=== PATIENT | male | born 1935 | race Caucasian/White ===

== ENCOUNTER → 2018-06-29 | Outpatient (CLI) | payer MEDICARE, BC ==
[2018-05-31 17:23] VITALS: BP 102/78
[~2018-06-29] MED LIST: FURO-68 PO; INDO50CA5 PO; LEVO25TA55 PO; MENT71OI TP
--- NOTE | 2018-06-29 11:34 | RAD ---
Chest, 2 views, 06/29/2018: HISTORY: Shortness of breath and chest pain Comparison is made to a study from 05/28/2018. The heart size is normal. There is mild tortuosity of the thoracic aorta. The trachea is deviated to the right of midline at the thoracic inlet due to the patient's known left thyroid mass. The pulmonary vascularity is normal. There is minimal left basilar scarring. No acute infiltrate is seen. There is no evidence of pleural fluid. Mild spurring is present in the spine. IMPRESSION: 1. Chronic findings as described above. 2. No acute cardiopulmonary abnormality is detected. Electronically signed by: Avni Guy MD (06/29/2018 11:31 AM) [facility]
--- NOTE | 2018-06-29 11:37 | RAD ---
Ventilation/perfusion lung scan, 06/29/2018: HISTORY: Dyspnea, chest pain The ventilation study was performed utilizing 12 mCi of xenon-133. Activity in the lungs is symmetric. There is good washout of activity from both lungs. Perfusion imaging was performed following IV injection of 5.5 mCi of technetium 99m MAA. A similar pattern of activity is present in the lungs. Previously seen bilateral pulmonary perfusion defects from the 05/28/2018 exam have resolved. No segmental or significant unmatched perfusion defect is currently seen. IMPRESSION: There are no VQ findings to suggest pulmonary emboli. Electronically signed by: Avni Guy MD (06/29/2018 11:34 AM) [facility]
== END | disposition home or self-care (01) ==
LOC: NM 08:47
PROVIDERS: ATTEND Internal Medicine Critical Care Medicine
DX: M46.04 Spinal enthesopathy, thoracic region (principal); J39.8 Other specified diseases of upper respiratory tract; I11.0 Hypertensive heart disease with heart failure; I50.33 Acute on chronic diastolic (congestive) heart failure; I25.10 Atherosclerotic heart disease of native coronary artery without angina pectoris; I48.91 Unspecified atrial fibrillation; E03.9 Hypothyroidism, unspecified; Z82.0 Family history of epilepsy and other diseases of the nervous system
CPT/HCPCS: 71046; 78582; 96374; A9540; A9558

== ENCOUNTER 2020-06-29 11:09 | Inpatient (IN) | payer BC, MEDICARE ==
[~2020-06-29] VITALS: Ht 182.9 cm; Wt 90.0 kg
[~2020-06-29 11:09] MED LIST changes: +INDO50CA15 PO; -INDO50CA5 PO
--- NOTE | 2020-06-29 11:23 | RAD ---
EXAM: CT Head without IV contrast INDICATION: Reason: LEFT SIDED WEAKNESS / Spl. Instructions: / History: TECHNIQUE: Multi-detector row CT images were obtained of the head without the use of IV contrast. All CT scans performed at this facility utilize dose optimization techniques as appropriate to the exam, including the following: Automated exposure control and adjustment of the mA and/or KV according to patient size (this includes techniques or standardized protocols for targeted exams where dose is indication/reason for exam). COMPARISON: None FINDINGS: BRAIN PARENCHYMA: No evidence of acute intraparenchymal hemorrhage or infarct. Mild generalized parenchymal volume loss is present. VENTRICLES & EXTRA-AXIAL SPACES: Ventricles are within normal limits. Basilar cisterns are patent. No pathologic extra-axial fluid collection or mass. ORBITS: Orbital contents are unremarkable. SINUSES: Visualized paranasal sinuses and mastoid air cells are clear. OSSEOUS & SOFT TISSUES: Calvarium and skull base are intact. IMPRESSION: No acute intracranial pathology. FOR INTERNAL CODING PURPOSES Critical result: Findings discussed with LÁZARO ALBERT at 06/29/2020 11:19 AM. RESULT CODE: (C) Electronically signed by: Jimbo Hunter MD (06/29/2020 11:19 AM) [id number]
--- NOTE | 2020-06-29 11:27 | PHYS DOC ---
Past Medical History Past Medical History: Anxiety, Dementia, Hypertension, Hypothyroid, Other Additional Past Medical Histor: ALZHEIMER'S, GEN. EDEMA, MDD Past Surgical History: Other Additional Past Surgical Histo: UNKNOWN - POOR HISTORIAN Smoking Status: Former Smoker Alcohol Use: Occasionally Drug Use: None General Adult EDM: Chief Complaint: LEFT SIDED WEAKNESS HPI: HPI: Patient is a 85 year old male who presents with left-sided weakness and altered mental status with last known normal at 10:30 AM. History and physical review of systems limited due to altered mental status. Review of Systems: Review of Systems: Constitutional: Denies fever or chills. [] Eyes: Denies change in visual acuity. [] HENT: Denies nasal congestion or sore throat. [] Respiratory: Denies cough or shortness of breath. [] Cardiovascular: Denies chest pain or edema. [] GI: Denies abdominal pain, nausea, vomiting, bloody stools or diarrhea. [] : Denies dysuria. [] Musculoskeletal: Denies back pain or joint pain. [] Integument: Denies rash. [] Neurologic: Denies headache, focal weakness or sensory changes. [] Endocrine: Denies polyuria or polydipsia. [] Lymphatic: Denies swollen glands. [] Psychiatric: Denies depression or anxiety. [] Heart Score: Risk Factors: Risk Factors: DM, Current or recent (<one month) smoker, HTN, HLP, family history of CAD, obesity. Risk Scores: Score 0 - 3: 2.5% MACE over next 6 weeks - Discharge Home Score 4 - 6: 20.3% MACE over next 6 weeks - Admit for Clinical Observation Score 7 - 10: 72.7% MACE over next 6 weeks - Early Invasive Strategies Allergies: Allergies: Allergies Coded Allergies Type Severity Reaction Last Updated Verified Penicillins Allergy Unknown 05/28/18 Yes Physical Exam: PE: Constitutional: Frail, mildly cachectic HENT: Normocephalic, no trismus no oral exudates, nose normal. [] Eyes: PERRLA, EOMI, conjunctiva normal, no discharge. [] Neck: Normal range of motion, no tenderness, supple, no stridor. [] Cardiovascular: Irregular, peripheral pulses intact Lungs & Thorax: Diminished breath sounds bilaterally, bruising to the left superior chest Abdomen: Soft nontender nondistended Skin: Bruising to the left chest and mild erythema to left middle finger Back: Full range of motion Extremities: Bruising to the left upper arm and old laceration to the middle phalanx of the middle finger on the dorsal side of the left hand with mild surrounding erythema. Neurologic: Alert and oriented X 1, moves all extremities, mild expressive aphasia Psychologic: Difficult to assess due to altered mental status EKG: EKG: [] EKG interpreted by me atrial flutter with a rate of 76 left axis deviation left anterior hemiblock nonspecific ST changes, nonspecific idioventricular block Radiology/Procedures: Radiology/Procedures: [][facility] [address] [place] [address] IMAGING REPORT Signed PATIENT: SARAH DE LA CRUZ ACCOUNT: [id number] : 1935 LOCATION: ER AGE: 85 SEX: M EXAM STATUS: PRE ER ORD. PHYSICIAN: LÁZARO ALBERT MD REASON: LEFT SIDED WEAKNESS PROCEDURE: CT CODE STROKE HEAD WO EXAM: CT Head without IV contrast INDICATION: Reason: LEFT SIDED WEAKNESS / Spl. Instructions: / History: TECHNIQUE: Multi-detector row CT images were obtained of the head without the use of IV contrast. All CT scans performed at this facility utilize dose optimization techniques as appropriate to the exam, including the following: Automated exposure control and adjustment of the mA and/or KV according to patient size (this includes techniques or standardized protocols for targeted exams where dose is indication/reason for exam). COMPARISON: None FINDINGS: BRAIN PARENCHYMA: No evidence of acute intraparenchymal hemorrhage or infarct. Mild generalized parenchymal volume loss is present. VENTRICLES & EXTRA-AXIAL SPACES: Ventricles are within normal limits. Basilar cisterns are patent. No pathologic extra-axial fluid collection or mass. ORBITS: Orbital contents are unremarkable. SINUSES: Visualized paranasal sinuses and mastoid air cells are clear. OSSEOUS & SOFT TISSUES: Calvarium and skull base are intact. IMPRESSION: No acute intracranial pathology. FOR INTERNAL CODING PURPOSES Critical result: Findings discussed with LÁZARO ALBERT at 06/29/2020 11:19 AM. RESULT CODE: (C) Electronically signed by: Katie Hunter MD (06/29/2020 11:19 AM) [id number] DICTATED and SIGNED BY: KATIE HUNTER MD DATE: 06/29/20 1119 [facility] [address] [place] [address] IMAGING REPORT Signed PATIENT: SARAH DE LA CRUZ ACCOUNT: [id number] : 1935 LOCATION: ER AGE: 85 SEX: M EXAM STATUS: REG ER ORD. PHYSICIAN: LÁZARO ALBERT MD REASON: CVA PROCEDURE: PORTABLE CHEST 1V PORTABLE CHEST 1V 06/29/2020 11:10 AM INDICATION: CVA COMPARISON: 06/29/2018 TECHNIQUE: Portable frontal view of the chest is provided. FINDINGS: The cardiomediastinal silhouette is within normal limits. Lungs are clear. There are no significant pleural effusions. There is no pulmonary vascular congestion. No pneumothorax. No suspicious osseous abnormality. IMPRESSION: There is no acute cardiopulmonary process. Electronically signed by: Chris Arita MD (06/29/2020 12:11 PM) [id number] DICTATED and SIGNED BY: CHRIS ARITA MD DATE: 06/29/20 1211 [facility] [address] [place] [address] IMAGING REPORT Signed PATIENT: SARAH DE LA CRUZ ACCOUNT: [id number] : 1935 LOCATION: ER AGE: 85 SEX: M EXAM STATUS: REG ER ORD. PHYSICIAN: LÁZARO ALBERT MD REASON: LEFT SIDED WEAKNESS PROCEDURE: CT ANGIOGRAPHY HEAD AND NECK Examination: CT angiography head and neck with IV contrast COMPARISON:CT head same day exam History: Left-sided weakness TECHNIQUE: Axial CT angiographic images of the head and neck were performed with IV contrast. Coronal and sagittal 3-D MIP reformats are performed. 3-D Volumetric reformats of the carotids and [place] of [place] were performed. Exposure: One or more of the following individualized dose reduction techniques were utilized for this examination: 1. Automated exposure control 2. Adjustment of the mA and/or kV according to patient size 3. Use of iterative reconstruction technique Stenosis calculations for CT, MR, and conventional angiography are based upon measurements of the distal ICA diameter in accordance with the NASCET methodology. Stenosis calculations for carotid ultrasound studies are derived from validated velocity criteria which are known to correlate with the NASCET methodology. FINDINGS: There is a 4 cm hypodense nodule identified in the left lobe of the thyroid gland. The origin of the great vessels from the arch of the aorta appears patent. The visualized common carotid arteries appear patent. Moderate atherosclerotic calcifications identified in the proximal left proximal internal carotid artery. There is mild to moderate atherosclerotic calcification identified in the right proximal internal carotid artery. Moderate metastatic calcifications identified in the bilateral internal carotid arteries in the cavernous portions. The bilateral middle cerebral arteries, anterior cerebral arteries are patent The bilateral vertebral arteries, basilar artery is patent. The bilateral posterior cerebral arteries are patent. Mild emphysematous changes apical lungs. IMPRESSION: 1. No evidence of occlusive thrombus. 2. Moderate atherosclerotic calcifications identified in the left proximal internal carotid artery and mild to moderate atherosclerotic calcification identified in the right proximal internal carotid artery of the neck. Electronically signed by: Regino Self MD (06/29/2020 12:17 PM) [id number] DICTATED and SIGNED BY: REGINO SELF MD DATE: 06/29/201216 Impression: 1a Level of Consciousness: 0 = Alert; keenly responsive. 1b LOC Questions: 2 = Answers neither question correctly. 2 Best Gaze: 0 = Normal. 3. Visual: 0 = No visual loss. 4. Facial Palsy: 0 = Normal symmetrical movements. 5. Motor Arm: Left 0 = No drift; limb holds 90 (or 45) degrees for full 10 seconds. Right 0 = No drift; limb holds 90 (or 45) degrees for full 10 seconds. 6. Motor Leg: Left 0 = No drift; leg holds 30-degree position for full 5 seconds. Right 0 = No drift; leg holds 30-degree position for full 5 seconds. 7. Limb Ataxia: 0 8. Sensory: 1 = Uycv-wz-[id number] sensory loss; patient feels pinprick is less sharp or is dull on the affected side; or there is a loss of superficial pain with pinprick, but patient is aware of being touched. 9. Best Langauge: 2 = Severe aphasia; all communication is through fragmentary expression; great need for inference, questioning, and guessing by the listener. Range of information that can be exchanged is limited; listener carries burden of communication. Examiner cannot identify materials provided from patient response . 10 Dysarthria: 0 = Normal. 1 = Ukvu-gy-[id number] dysarthria; patient slurs at least some words and, at worst, can be understood with some difficulty. 11. Extinction and Inattention (formerly Neglect): 0 = No abnormality. Course & Med Decision Making: Course & Med Decision Making Pertinent Labs and Imaging studies reviewed. (See chart for details) [] 85-year-old male comes in as a code stroke activation. On my exam patient does not have any lateralizing deficits and has extensive bruising on the left chest and arm. Due to obvious somewhat recent trauma and no lateralizing deficits in a 85-year-old with dementia TPA was not administered. Patient has no evidence of large vessel occlusion on CT angiogram therefore he is not a candidate for clot retrieval. Patient has some bacteria in his urine will be treated for urinary tract infection. Patient was placed in observation to Dr. Hilton for further evaluation and treatment. Dragon Disclaimer: Dragon Disclaimer: This electronic medical record was generated, in whole or in part, using a voice recognition dictation system. Departure Departure Impression: Primary Impression: Altered mental status Disposition: ADMITTED INPATIENT Condition: STABLE Referrals: UNKNOWN PCP NAME (PCP) Justicifation of Admission Dx: Justifications for Admission: Justification of Admission Dx: Yes (AMS) LÁZARO ALBERT MD Jun 29, 2020 11:27
[2020-06-29] MEDS ORDERED: IOHEXOL 350 MG/ML 100 ML VIAL. IV ONE (11:30)
[2020-06-29] MEDS ORDERED: CONTRAST GIVEN. MC PRN (11:45)
--- NOTE | 2020-06-29 11:51 | EKG ---
[facility] [address] [place] [address] Test Date: 2020-06-29 Test Time: 11:40:47 Pat Name: SARAH DE LA CRUZ Department: Room: Gender: M Manager Mall: : 1935 Requested By: LÁZARO ALBERT Order Number: [id number] Reading MD: Measurements Intervals [place] Rate: 76 P: 140 OR: 178 QRS: -79 QRSD: 138 T: 28 QT: 430 QTc: 489 Interpretive Statements SINUS RHYTHM ABNORMAL LEFT AXIS DEVIATION S1,S2,S3 PATTERN LEFT ANTERIOR FASCICULAR BLOCK NON SPECIFIC INTRAVENTRICULAR BLOCK QRS(T) CONTOUR ABNORMALITY CONSIDER ANTEROSEPTAL MYOCARDIAL DAMAGE ABNORMAL ECG RI6.02 No previous ECG available for comparison
[2020-06-29 12:04] LABS: BASO % 1 % (0-3); EOS % 0 % (0-3); HEMATOCRIT 39.3 % (39.0-53.0); HEMOGLOBIN 13.8 g/dL (13.0-17.5); LYMPH # 1.2 x10^3/uL (1.0-4.8); LYMPH % 12 % (24-48); MEAN CORPUSCULAR HEMOGLOBIN 33 pg (25-35); MEAN CORPUSCULAR HGB CONC 35 g/dL (31-37); MEAN CORPUSCULAR VOLUME 93 fL (79-100); MONO # 1.1 x10^3/uL (0.0-1.1); MONO % 11 % (0-9); NEUT # 7.5 x10^3/uL (1.8-7.7); NEUT % 76 % (31-73); PLATELET COUNT 484 x10^3/uL (140-400); RED BLOOD COUNT 4.22 x10^6/uL (4.30-5.70); RED CELL DISTRIBUTION WIDTH 14.7 % (11.5-14.5); WHITE BLOOD COUNT 9.8 x10^3/uL (4.0-11.0)
[2020-06-29 12:14] LABS: CALCIUM 9.8 mg/dL (8.5-10.1); CREATININE 1.4 mg/dL (0.7-1.3); GFR 47.9; POTASSIUM 3.8 mmol/L (3.5-5.1)
--- NOTE | 2020-06-29 12:14 | RAD ---
PORTABLE CHEST 1V 06/29/2020 11:10 AM INDICATION: CVA COMPARISON: 06/29/2018 TECHNIQUE: Portable frontal view of the chest is provided. FINDINGS: The cardiomediastinal silhouette is within normal limits. Lungs are clear. There are no significant pleural effusions. There is no pulmonary vascular congestion. No pneumothorax. No suspicious osseous abnormality. IMPRESSION: There is no acute cardiopulmonary process. Electronically signed by: Jacklyn Arriola MD (06/29/2020 12:11 PM) [id number]
[2020-06-29 12:17] LABS: PROTHROMBIN TIME PATIENT 15.7 SEC (11.7-14.0)
[2020-06-29 12:20] LABS: ALBUMIN 3.2 g/dL (3.4-5.0); ALBUMIN/GLOBULIN RATIO 0.9 (1.0-1.7); TOTAL BILIRUBIN 0.6 mg/dL (0.2-1.0); TOTAL PROTEIN 6.6 g/dL (6.4-8.2)
--- NOTE | 2020-06-29 12:20 | RAD ---
Examination: CT angiography head and neck with IV contrast COMPARISON:CT head same day exam History: Left-sided weakness TECHNIQUE: Axial CT angiographic images of the head and neck were performed with IV contrast. Coronal and sagittal 3-D MIP reformats are performed. 3-D Volumetric reformats of the carotids and [place] of [place] were performed. Exposure: One or more of the following individualized dose reduction techniques were utilized for this examination: 1. Automated exposure control 2. Adjustment of the mA and/or kV according to patient size 3. Use of iterative reconstruction technique Stenosis calculations for CT, MR, and conventional angiography are based upon measurements of the distal ICA diameter in accordance with the NASCET methodology. Stenosis calculations for carotid ultrasound studies are derived from validated velocity criteria which are known to correlate with the NASCET methodology. FINDINGS: There is a 4 cm hypodense nodule identified in the left lobe of the thyroid gland. The origin of the great vessels from the arch of the aorta appears patent. The visualized common carotid arteries appear patent. Moderate atherosclerotic calcifications identified in the proximal left proximal internal carotid artery. There is mild to moderate atherosclerotic calcification identified in the right proximal internal carotid artery. Moderate metastatic calcifications identified in the bilateral internal carotid arteries in the cavernous portions. The bilateral middle cerebral arteries, anterior cerebral arteries are patent The bilateral vertebral arteries, basilar artery is patent. The bilateral posterior cerebral arteries are patent. Mild emphysematous changes apical lungs. IMPRESSION: 1. No evidence of occlusive thrombus. 2. Moderate atherosclerotic calcifications identified in the left proximal internal carotid artery and mild to moderate atherosclerotic calcification identified in the right proximal internal carotid artery of the neck. Electronically signed by: Regino Self MD (06/29/2020 12:17 PM) [id number]
[2020-06-29] MEDS ORDERED: IV NORMAL SALINE 500ML BAG 500 ML IV ONE (12:30)
[2020-06-29 12:40] LABS: BILIRUBIN,URINE MODERATE (NEG); COLOR,URINE AMBER; NITRITE,URINE NEGATIVE (NEG); PH,URINE 5.5 (<5.0-8.0); PROTEIN,URINE NEGATIVE (NEG-TRACE)
[2020-06-29 12:46] LABS: BACTERIA,URINE MODERATE /HPF (0-FEW); CLARITY,URINE HAZY; HYALINE CASTS, URINE FEW /HPF
[2020-06-29 12:47] LABS: RBC,URINE 0 /HPF (0-2)
--- NOTE | 2020-06-29 12:49 | RAD ---
HAND LEFT 3V 06/29/2020 12:04 PM INDICATION: Third digit swelling and redness COMPARISON: None available. TECHNIQUE: 3 views of the left hand are provided. FINDINGS/ IMPRESSION: 1. Osteopenia. 2. Mild interphalangeal joint space narrowing compatible with mild osteoarthrosis. 3. No acute fracture or dislocation. 4. Soft tissue swelling along the second and third digits. No radiopaque foreign density or osseous erosion. Electronically signed by: Jacklyn Arriola MD (06/29/2020 12:46 PM) [id number]
[2020-06-29] MEDS ORDERED: ONDANSETRON PF 4 MG/2 ML VIAL. IV PRN (13:00)
[2020-06-29] MEDS ORDERED: cefTRIAXone IV Push 1 GM VIAL. IVP ONE (13:00)
--- NOTE | 2020-06-29 13:50 | PDOC1 ---
History and Physical Date of Service: DOS: DATE: 06/29/20 TIME: 13:48 Chief Complaint: Chief Complain: Left sided weakness History of Present Illness: HPI: Patient is an 85 yo M with PMHx for Advanced Alzheimers Dementia, HTN, Hypothyroidism, who is sent from [facility] due to left sided weakness and AMS since 1030am. Patient is non-verbal due to hos progressively worsening dementia and most of the history was obtained from the daughter and son. According to them, the patient has been falling more often in the past couple of months and he usually ambulates with a walker. The son was called this morning by the [place] that the patient was having weakness and decision was made to send him to [facility]. Son also states they have noticed more bruising on his extremities and also there are also some non-healing lower extremity wounds that they think may be due to PAD. Patient has also been on a small dose of Eliquis at 2.5mg for a DVT he had a few years ago. They are unsure whether this was provoked or unprovoked. Past Medical/Surgical History: PMH/PSH: Past Medical History: Hx of LE DVT, Anxiety, Dementia, Hypertension, Hypoth yroid, ALZHEIMER'S, GEN. EDEMA, MDD Past Surgical History: Other Additional Past Surgical Histo: UNKNOWN - POOR HISTORIAN Allergies: Allergies: Coded Allergies: Penicillins (Verified Allergy, Unknown, 05/28/18) Family History: Family History: Reviewed and none reported Social History: Social History: Smoking Status: Former Smoker Alcohol Use: Occasionally Drug Use: None Current Medications: Current Medications Current Medications Iohexol (Omnipaque 350 Mg/ml) 75 ml 1X ONCE IV ; Start 06/29/20 at 11:30; Stop 06/29/20 at 11:32; Status DC Info (CONTRAST GIVEN -- Rx MONITORING) 1 each PRN DAILY PRN MC SEE COMMENTS; Start 06/29/20 at 11:45; Stop 07/01/20 at 11:44 Sodium Chloride 500 ml @ 500 mls/hr 1X ONCE IV Last administered on 06/29/20at 13:03; Start 06/29/20 at 12:30; Stop 06/29/20 at 13:29; Status DC Ceftriaxone Sodium (Rocephin) 1 gm 1X ONCE IVP Last administered on 06/29/20at 13:03; Start 06/29/20 at 13:00; Stop 06/29/20 at 13:01; Status DC Ondansetron HCl (Zofran) 4 mg PRN Q8HRS PRN IV NAUSEA/VOMITING; Start 06/29/20 at 13:00; Stop 06/30/20 at 12:59 Active Scripts Active Reported Synthroid (Levothyroxine Sodium) 25 Mcg Tablet 1 Tab PO DAILY Calmoseptine Ointment (Menthol/Zinc Oxide) 71 Gm Oint...g. 71 Gm TP QID Indomethacin 50 Mg Capsule 50 Mg PO PRN Q8HRS Lasix (Furosemide) 40 Mg Tablet 40 Mg PO DAILY ROS: Review of Systems Review of System REVIEW OF SYSTEMS: GENERAL: Denies weakness SKIN: No bruising, hair changes or rashes. EYES: No blurred, double or loss of vision. NOSE AND THROAT: No history of nosebleeds, hoarseness or sore throat. HEART: No history of palpitations, chest pain or shortness of breath on exertion. LUNGS: Denies cough, hemoptysis, wheezing or shortness of breath. GASTROINTESTINAL: Denies changes in appetite, nausea, vomiting, diarrhea or constipation. GENITOURINARY: No history of frequency, urgency, hesitancy or nocturia. NEUROLOGIC: Denies history of numbness, tingling, or tremor. PSYCHIATRIC: No history of panic, anxiety or depression. ENDOCRINE: No history of heat or cold intolerance, polyuria or polydipsia. EXTREMITIES: Denies joint pain, pain on walking or stiffness. Physical Exam: Vital Signs: Vital Signs Date Time Temp Pulse Resp B/P (MAP) Pulse Ox O2 Delivery O2 Flow Rate FiO2 06/29/20 12:45 83 86 06/29/20 12:30 23 06/29/20 11:09 98.0 148/72 (97) Room Air 98.0 Physcial Exam: GEN: No apparent distress. Alert and oriented HEENT: Normal cephalic, atraumatic, external auditory canals are patent EYES: Extraocular muscles are intact, pupil are equally round and reactive to light and accommodation MUSCULOSKELETAL: Well developed , well nourished, good range of motion ENDOCRINE: No thyromegaly was palpated LYMPHATICS: No cervical chain or axillary nodes were noted HEMATOPOIETIC: No bruising NECK: Supple, no JVD, no thyromegaly was noted LUNGS: Clear to auscultation in all lung morrow without rhonchi or wheezing HEART: RRR, S!, S2 present. Peripheral pulses intact, no obvious murmurs noted ABDOMEN: Soft, nontender. Positive bowel sounds, no organomegaly, normal bowel sounds EXTREMITIES: Without clubbing, cyanosis, or edema. Pedal pulses intact. Negative Homans sign NEUROLOGIC: Normal speech and tone. A&O x 3, moves all extremities, no obvious focal deficits PSYCHIATRIC: Normal affect, normal mood. Stable SKIN: No ulcerations or rashes, good skin turgor, no jaundice VASCULAR: Good capillary refill, neurovascular bundle appears to be intact Labs: Labs: Laboratory Tests Test 06/29/20 11:35 06/29/20 11:43 06/29/20 11:50 Glucose (Fingerstick) 88 mg/dL (70-99) White Blood Count 9.8 x10^3/uL (4.0-11.0) Red Blood Count 4.22 x10^6/uL (4.30-5.70) Hemoglobin 13.8 g/dL (13.0-17.5) Hematocrit 39.3 % (39.0-53.0) Mean Corpuscular Volume 93 fL (79-100) Mean Corpuscular Hemoglobin 33 pg (25-35) Mean Corpuscular Hemoglobin Concent 35 g/dL (31-37) Red Cell Distribution Width 14.7 % (11.5-14.5) Platelet Count 484 x10^3/uL (140-400) Neutrophils (%) (Auto) 76 % (31-73) Lymphocytes (%) (Auto) 12 % (24-48) Monocytes (%) (Auto) 11 % (0-9) Eosinophils (%) (Auto) 0 % (0-3) Basophils (%) (Auto) 1 % (0-3) Neutrophils # (Auto) 7.5 x10^3/uL (1.8-7.7) Lymphocytes # (Auto) 1.2 x10^3/uL (1.0-4.8) Monocytes # (Auto) 1.1 x10^3/uL (0.0-1.1) Eosinophils # (Auto) 0.0 x10^3/uL (0.0-0.7) Basophils # (Auto) 0.0 x10^3/uL (0.0-0.2) Prothrombin Time 15.7 SEC (11.7-14.0) Prothromb Time International Ratio 1.3 (0.8-1.1) Activated Partial Thromboplast Time 34 SEC (24-38) Sodium Level 140 mmol/L (136-145) Potassium Level 3.8 mmol/L (3.5-5.1) Chloride Level 103 mmol/L (98-107) Carbon Dioxide Level 23 mmol/L (21-32) Anion Gap 14 (6-14) Blood Urea Nitrogen 22 mg/dL (8-26) Creatinine 1.4 mg/dL (0.7-1.3) Estimated GFR (Cockcroft-Gault) 47.9 BUN/Creatinine Ratio 16 (6-20) Glucose Level 89 mg/dL (70-99) Calcium Level 9.8 mg/dL (8.5-10.1) Total Bilirubin 0.6 mg/dL (0.2-1.0) Aspartate Amino Transf (AST/SGOT) 33 U/L (15-37) Alanine Aminotransferase (ALT/SGPT) 23 U/L (16-63) Alkaline Phosphatase 69 U/L (46-116) Troponin I Quantitative 0.018 ng/mL (0.000-0.055) Total Protein 6.6 g/dL (6.4-8.2) Albumin 3.2 g/dL (3.4-5.0) Albumin/Globulin Ratio 0.9 (1.0-1.7) Urine Collection Type Void Urine Color Terri Urine Clarity Hazy Urine pH 5.5 (<5.0-8.0) Urine Specific [place] 1.020 (1.000-1.030) Urine Protein Negative mg/dL (NEG-TRACE) Urine Glucose (UA) Negative mg/dL (NEG) Urine Ketones (Stick) 40 mg/dL (NEG) Urine Blood Negative (NEG) Urine Nitrite Negative (NEG) Urine Bilirubin Moderate (NEG) Urine Urobilinogen Dipstick 1.0 mg/dL (0.2 mg/dL) Urine Leukocyte Esterase Trace (NEG) Urine RBC 0 /HPF (0-2) Urine WBC 1-4 /HPF (0-4) Urine Bacteria Moderate /HPF (0-FEW) Urine Hyaline Casts Few /HPF Urine Mucus Slight /LPF Laboratory Tests Test 06/29/20 11:35 06/29/20 11:43 06/29/20 11:50 Glucose (Fingerstick) 88 mg/dL (70-99) White Blood Count 9.8 x10^3/uL (4.0-11.0) Red Blood Count 4.22 x10^6/uL (4.30-5.70) Hemoglobin 13.8 g/dL (13.0-17.5) Hematocrit 39.3 % (39.0-53.0) Mean Corpuscular Volume 93 fL (79-100) Mean Corpuscular Hemoglobin 33 pg (25-35) Mean Corpuscular Hemoglobin Concent 35 g/dL (31-37) Red Cell Distribution Width 14.7 % (11.5-14.5) Platelet Count 484 x10^3/uL (140-400) Neutrophils (%) (Auto) 76 % (31-73) Lymphocytes (%) (Auto) 12 % (24-48) Monocytes (%) (Auto) 11 % (0-9) Eosinophils (%) (Auto) 0 % (0-3) Basophils (%) (Auto) 1 % (0-3) Neutrophils # (Auto) 7.5 x10^3/uL (1.8-7.7) Lymphocytes # (Auto) 1.2 x10^3/uL (1.0-4.8) Monocytes # (Auto) 1.1 x10^3/uL (0.0-1.1) Eosinophils # (Auto) 0.0 x10^3/uL (0.0-0.7) Basophils # (Auto) 0.0 x10^3/uL (0.0-0.2) Prothrombin Time 15.7 SEC (11.7-14.0) Prothromb Time International Ratio 1.3 (0.8-1.1) Activated Partial Thromboplast Time 34 SEC (24-38) Sodium Level 140 mmol/L (136-145) Potassium Level 3.8 mmol/L (3.5-5.1) Chloride Level 103 mmol/L (98-107) Carbon Dioxide Level 23 mmol/L (21-32) Anion Gap 14 (6-14) Blood Urea Nitrogen 22 mg/dL (8-26) Creatinine 1.4 mg/dL (0.7-1.3) Estimated GFR (Cockcroft-Gault) 47.9 BUN/Creatinine Ratio 16 (6-20) Glucose Level 89 mg/dL (70-99) Calcium Level 9.8 mg/dL (8.5-10.1) Total Bilirubin 0.6 mg/dL (0.2-1.0) Aspartate Amino Transf (AST/SGOT) 33 U/L (15-37) Alanine Aminotransferase (ALT/SGPT) 23 U/L (16-63) Alkaline Phosphatase 69 U/L (46-116) Troponin I Quantitative 0.018 ng/mL (0.000-0.055) Total Protein 6.6 g/dL (6.4-8.2) Albumin 3.2 g/dL (3.4-5.0) Albumin/Globulin Ratio 0.9 (1.0-1.7) Urine Collection Type Void Urine Color Terri Urine Clarity Hazy Urine pH 5.5 (<5.0-8.0) Urine Specific [place] 1.020 (1.000-1.030) Urine Protein Negative mg/dL (NEG-TRACE) Urine Glucose (UA) Negative mg/dL (NEG) Urine Ketones (Stick) 40 mg/dL (NEG) Urine Blood Negative (NEG) Urine Nitrite Negative (NEG) Urine Bilirubin Moderate (NEG) Urine Urobilinogen Dipstick 1.0 mg/dL (0.2 mg/dL) Urine Leukocyte Esterase Trace (NEG) Urine RBC 0 /HPF (0-2) Urine WBC 1-4 /HPF (0-4) Urine Bacteria Moderate /HPF (0-FEW) Urine Hyaline Casts Few /HPF Urine Mucus Slight /LPF Images: Images HEAD CT IMPRESSION: No acute intracranial pathology. HEAD/NECK CTA IMPRESSION: 1. No evidence of occlusive thrombus. 2. Moderate atherosclerotic calcifications identified in the left proximal internal carotid artery and mild to moderate atherosclerotic calcification identified in the right proximal internal carotid artery of the neck. Left Hand xr IMPRESSION: 1. Osteopenia. 2. Mild interphalangeal joint space narrowing compatible with mild osteoarthrosis. 3. No acute fracture or dislocation. 4. Soft tissue swelling along the second and third digits. No radiopaque foreign density or osseous erosion. Assessment/Plan Assessment/Plan Acute TIA vs ischemic stroke Acute metabolic encephalopathy NOS ROME due to vasomotor nephropathy BLE nonhealing ulcers concerning for PAD Dementia - Admit to medicine unit for further workup - Neuro evaluation pending - pending MRI brain - continue telemonitoring for at least 24 hours - continue maintenance IVF while NPO - maintain normoglycemia with goals of 140-180. Elevated glucose may augment brain injury due to tissue acidosis from anaerobic metabolism, free radical generation, and increased blood brain barrier permeability - allow for permissive hypertension with goals between 140-180/90-105 for at least 24 hours - continue ASA Daily within 24 - 48 hours - continue high-intensity statin - pending BLE DVT US - SCD for DVT prophylaxis - pending PT/OT/speech - wound care consult - continue Eliquis for DVT prophylaxis - DNR - MPOA is the son Justifications for Admission Other Justification POOJA RED MD Jun 29, 2020 13:50
[2020-06-29] MEDS: IV NORMAL SALINE 1000ML BAG 1,000 ML IV SCH (14:53)
[2020-06-29] MEDS ORDERED: MAGNESIUM SULFATE 2GM 50 ML IV SCH (15:00)
[2020-06-29] MEDS ORDERED: ONDANSETRON PF 4 MG/2 ML VIAL. IVP PRN (15:00)
[2020-06-29] MEDS ORDERED: POTASSIUM CHLORIDE 20 MEQ TABLET.ER. PO PRN (15:00)
[2020-06-29] MEDS ORDERED: ACETAMINOPHEN 325 MG TABLET. PO PRN (15:00)
[2020-06-29] MEDS ORDERED: POTASSIUM CHLORIDE 10MEQ 100 ML IV PRN (15:00)
[2020-06-29] MEDS ORDERED: DEXTROSE 50% 25 GM / 50ML DISP.SYRIN. IV PRN (15:00)
[2020-06-29] MEDS ORDERED: POTASSIUM CHLORIDE 10MEQ 100 ML IV SCH (15:00)
[2020-06-29] MEDS ORDERED: DOCUSATE SODIUM 100 MG CAPSULE. PO PRN (15:00)
[2020-06-29] MEDS ORDERED: SENNOSIDES 8.6 MG TABLET PO PRN (15:00)
[2020-06-29] MEDS ORDERED: ELECTROLYTE (NON-ICU) PROTOCOL MC PRN (15:30)
[2020-06-29] MEDS: ENOXAPARIN 40 MG/0.4 ML SYRINGE. SQ SCH (16:00)
--- NOTE | 2020-06-29 17:50 | NUR ---
PATIENT ARRIVED ON THE UNIT PER CART, FAMILY MEMBERS, TWO DAUGHTER AT THE BEDSIDE, PATIENT ASSISTED FROM CART TO BED AND MOANS OCCASIONALLY WITH MOVEMENT, AFTER COMFORT MEASURES GIVEN, PATIENT FALLS ASLEEP LEAVING THIS RUG INSPECTOR UNABLE TO COMPLETE NIH STROKE SCALE AT THIS TIME. WILL CALL CONSULT TO DR. POLK, FAMILY INFORMED.
[2020-06-29] MEDS: THIAMINE INJ 100 MG in IV DEXTROSE 5% 50 ML IV SCH (18:53)
[2020-06-29 19:00] VITALS: BP 151/66
[2020-06-29] MEDS ORDERED: MAGNESIUM OXIDE 400 MG TABLET PO SCH (21:00)
[2020-06-29 23:00] VITALS: BP 137/70
--- NOTE | 2020-06-30 01:26 | RAD ---
Bilateral lower extremity venous Doppler ultrasound History: Reason: Hx of DVT; Comparison: None. Procedure: Color flow Doppler, Doppler spectral analysis, and 2D images are obtained with and without compression in the area of the common femoral vein, superficial femoral vein - femoral vein junction, main femoral vein (superficial femoral vein) and popliteal vein. Veins of the proximal calf are also imaged. Findings: There is normal color flow, augmentation, and compressibility of all visualized vein segments. No evidence of deep venous thrombus is present. The patient requested exam be terminated prior to completion and the left popliteal, posterior tibial, and peroneal veins are not evaluated. IMPRESSION: 1. No evidence of right lower extremity deep venous thrombosis. 2. There is no DVT in the left common femoral or superficial femoral veins. Electronically signed by: Jose Mitchell MD (06/30/2020 1:23 AM) [facility]
[2020-06-30 03:00] VITALS: BP 150/57
[2020-06-30] MEDS: IV NORMAL SALINE 1000ML BAG 1,000 ML IV SCH ×4 (03:21→22:02)
[2020-06-30 05:43] LABS: BASO # 0.1 x10^3/uL (0.0-0.2); BASO % 1 % (0-3); EOS # 0.2 x10^3/uL (0.0-0.7); EOS % 2 % (0-3); HEMATOCRIT 38.8 % (39.0-53.0); HEMOGLOBIN 13.3 g/dL (13.0-17.5); LYMPH # 1.5 x10^3/uL (1.0-4.8); LYMPH % 20 % (24-48); MEAN CORPUSCULAR HEMOGLOBIN 32 pg (25-35); MEAN CORPUSCULAR HGB CONC 34 g/dL (31-37); MEAN CORPUSCULAR VOLUME 94 fL (79-100); MONO # 0.9 x10^3/uL (0.0-1.1); MONO % 12 % (0-9); NEUT # 4.8 x10^3/uL (1.8-7.7); NEUT % 65 % (31-73); PLATELET COUNT 415 x10^3/uL (140-400); RED BLOOD COUNT 4.12 x10^6/uL (4.30-5.70); RED CELL DISTRIBUTION WIDTH 14.9 % (11.5-14.5); WHITE BLOOD COUNT 7.5 x10^3/uL (4.0-11.0)
[2020-06-30 05:47] LABS: CALCIUM 9.1 mg/dL (8.5-10.1); CREATININE 1.1 mg/dL (0.7-1.3); GFR 63.3; MAGNESIUM 2.1 mg/dL (1.8-2.4); PHOSPHORUS 3.8 mg/dL (2.6-4.7); POTASSIUM 3.6 mmol/L (3.5-5.1)
[2020-06-30 07:30] VITALS: BP 135/72
--- NOTE | 2020-06-30 08:36 | PDOC ---
PROGRESS NOTES Date of Service: DATE: 06/30/20 TIME: 08:36 Chief Complaint Chief Complaint IMPRESSION Acute TIA vs ischemic stroke Acute metabolic encephalopathy NOS ROME due to vasomotor nephropathy BLE nonhealing ulcers concerning for PAD Dementia PLAN - Admit to medicine unit for further workup - Neuro evaluation - pending MRI brain - continue telemonitoring for at least 24 hours - continue maintenance IVF while NPO - maintain normoglycemia with goals of 140-180. Elevated glucose may augment brain injury due to tissue acidosis from anaerobic metabolism, free radical generation, and increased blood brain barrier permeability - allow for permissive hypertension with goals between 140-180/90-105 for at least 24 hours - continue ASA Daily within 24 - 48 hours - continue high-intensity statin - pending BLE DVT US - SCD for DVT prophylaxis - pending PT/OT/speech - wound care consult - continue Eliquis for DVT prophylaxis - DNR - MPOA is the son CONSERVATIVE medical management d/w dr Sparks no mri Justifications for Admission Justifications for Admission Other Justification History of Present Illness History of Present Illness Chief Complaint: Chief Complain: Left sided weakness History of Present Illness: HPI: Patient is an 85 yo M with PMHx for Advanced Alzheimers Dementia, HTN, Hypothyroidism, who is sent from [facility] due to left sided weakness and AMS since 1030am. Patient is non-verbal due to hos progressively worsening dementia and most of the history was obtained from the daughter and son. According to them, the patient has been falling more often in the past couple of months and he usually ambulates with a walker. The son was called this morning by the HI that the patient was having weakness and decision was made to send him to [facility]. Son also states they have noticed more bruising on his extremities and also there are also some non-healing lower extremity wounds that they think may be due to PAD. Patient has also been on a small dose of Eliquis at 2.5mg for a DVT he had a few years ago. They are unsure whether this was provoked or unprovoked. Past Medical/Surgical History: PMH/PSH: Past Medical History: Hx of LE DVT, Anxiety, Dementia, Hypertension, Hypothyroid, ALZHEIMER'S, GEN. EDEMA, MDD Past Surgical History: Other Additional Past Surgical Histo: UNKNOWN - POOR HISTORIAN Allergies: Allergies: Coded Allergies: Penicillins (Verified Allergy, Unknown, 05/28/18) Family History: Family History: Reviewed and none reported Social History: Social History: Smoking Status: Former Smoker Alcohol Use: Occasionally Drug Use: None Current Medications: Current Medications Vitals Vitals Vital Signs Date Time Temp Pulse Resp B/P (MAP) Pulse Ox O2 Delivery O2 Flow Rate FiO2 06/30/20 03:00 98.6 38 18 150/57 (88) 99 Room Air 98.6 Physical Exam Physical Exam Physcial Exam: GEN: No apparent distress. RESTING CALM IN BED HEENT: Normal cephalic, atraumatic, external auditory canals are patent EYES: Extraocular muscles are intact, pupil are equally round and reactive to light and accommodation MUSCULOSKELETAL: Well developed , well nourished, good range of motion ENDOCRINE: No thyromegaly was palpated LYMPHATICS: No cervical chain or axillary nodes were noted HEMATOPOIETIC: No bruising NECK: Supple, no JVD, no thyromegaly was noted LUNGS: Clear to auscultation in all lung morrow without rhonchi or wheezing HEART: RRR, S!, S2 present. Peripheral pulses intact, no obvious murmurs noted ABDOMEN: Soft, nontender. Positive bowel sounds, no organomegaly, normal bowel sounds EXTREMITIES: Without clubbing, cyanosis, or edema. Pedal pulses intact. Negative Homans sign NEUROLOGIC: Normal speech and tone. A&O x 3, moves all extremities, no obvious focal deficits PSYCHIATRIC: Normal affect, normal mood. Stable SKIN: No ulcerations or rashes, good skin turgor, no jaundice VASCULAR: Good capillary refill, neurovascular bundle appears to be intact General: Cooperative, No acute distress Lungs: Clear Abdomen: Normal bowel sounds, Soft Extremities: No cyanosis Labs LABS EXAM: CT Head without IV contrast INDICATION: Reason: LEFT SIDED WEAKNESS / Spl. Instructions: / History: TECHNIQUE: Multi-detector row CT images were obtained of the head without the use of IV contrast. All CT scans performed at this facility utilize dose optimization techniques as appropriate to the exam, including the following: Automated exposure control and adjustment of the mA and/or KV according to patient size (this includes techniques or standardized protocols for targeted exams where dose is indication/reason for exam). COMPARISON: None FINDINGS: BRAIN PARENCHYMA: No evidence of acute intraparenchymal hemorrhage or infarct. Mild generalized parenchymal volume loss is present. VENTRICLES & EXTRA-AXIAL SPACES: Ventricles are within normal limits. Basilar cisterns are patent. No pathologic extra-axial fluid collection or mass. ORBITS: Orbital contents are unremarkable. SINUSES: Visualized paranasal sinuses and mastoid air cells are clear. OSSEOUS & SOFT TISSUES: Calvarium and skull base are intact. IMPRESSION: No acute intracranial pathology. FOR INTERNAL CODING PURPOSES Critical result: Findings discussed with LÁZARO ALBERT at 06/29/2020 11:19 AM. RESULT CODE: (C) COMPARISON:CT head same day exam History: Left-sided weakness TECHNIQUE: Axial CT angiographic images of the head and neck were performed with IV contrast. Coronal and sagittal 3-D MIP reformats are performed. 3-D Volumetric reformats of the carotids and wrangell of Collins were performed. Exposure: One or more of the following individualized dose reduction techniques were utilized for this examination: 1. Automated exposure control 2. Adjustment of the mA and/or kV according to patient size 3. Use of iterative reconstruction technique Stenosis calculations for CT, MR, and conventional angiography are based upon measurements of the distal ICA diameter in accordance with the NASCET methodology. Stenosis calculations for carotid ultrasound studies are derived from validated velocity criteria which are known to correlate with the NASCET methodology. FINDINGS: There is a 4 cm hypodense nodule identified in the left lobe of the thyroid gland. The origin of the great vessels from the arch of the aorta appears patent. The visualized common carotid arteries appear patent. Moderate atherosclerotic calcifications identified in the proximal left proximal internal carotid artery. There is mild to moderate atherosclerotic calcification identified in the right proximal internal carotid artery. Moderate metastatic calcifications identified in the bilateral internal carotid arteries in the cavernous portions. The bilateral middle cerebral arteries, anterior cerebral arteries are patent The bilateral vertebral arteries, basilar artery is patent. The bilateral posterior cerebral arteries are patent. Mild emphysematous changes apical lungs. IMPRESSION: 1. No evidence of occlusive thrombus. 2. Moderate atherosclerotic calcifications identified in the left proximal internal carotid artery and mild to moderate atherosclerotic calcification identified in the right proximal internal carotid artery of the neck. Electronically signed by: Regino Self MD (06/29/2020 12:17 PM) [id number] Laboratory Tests Test 06/29/20 11:35 06/29/20 11:43 06/29/20 11:50 06/30/20 04:15 Glucose (Fingerstick) 88 mg/dL (70-99) White Blood Count 9.8 x10^3/uL (4.0-11.0) Red Blood Count 4.22 x10^6/uL (4.30-5.70) Hemoglobin 13.8 g/dL (13.0-17.5) Hematocrit 39.3 % (39.0-53.0) Mean Corpuscular Volume 93 fL (79-100) Mean Corpuscular Hemoglobin 33 pg (25-35) Mean Corpuscular Hemoglobin Concent 35 g/dL (31-37) Red Cell Distribution Width 14.7 % (11.5-14.5) Platelet Count 484 x10^3/uL (140-400) Neutrophils (%) (Auto) 76 % (31-73) Lymphocytes (%) (Auto) 12 % (24-48) Monocytes (%) (Auto) 11 % (0-9) Eosinophils (%) (Auto) 0 % (0-3) Basophils (%) (Auto) 1 % (0-3) Neutrophils # (Auto) 7.5 x10^3/uL (1.8-7.7) Lymphocytes # (Auto) 1.2 x10^3/uL (1.0-4.8) Monocytes # (Auto) 1.1 x10^3/uL (0.0-1.1) Eosinophils # (Auto) 0.0 x10^3/uL (0.0-0.7) Basophils # (Auto) 0.0 x10^3/uL (0.0-0.2) Prothrombin Time 15.7 SEC (11.7-14.0) Prothromb Time International Ratio 1.3 (0.8-1.1) Activated Partial Thromboplast Time 34 SEC (24-38) Sodium Level 140 mmol/L (136-145) 145 mmol/L (136-145) Potassium Level 3.8 mmol/L (3.5-5.1) 3.6 mmol/L (3.5-5.1) Chloride Level 103 mmol/L (98-107) 107 mmol/L (98-107) Carbon Dioxide Level 23 mmol/L (21-32) 25 mmol/L (21-32) Anion Gap 14 (6-14) 13 (6-14) Blood Urea Nitrogen 22 mg/dL (8-26) 17 mg/dL (8-26) Creatinine 1.4 mg/dL (0.7-1.3) 1.1 mg/dL (0.7-1.3) Estimated GFR (Cockcroft-Gault) 47.9 63.3 BUN/Creatinine Ratio 16 (6-20) Glucose Level 89 mg/dL (70-99) 70 mg/dL (70-99) Calcium Level 9.8 mg/dL (8.5-10.1) 9.1 mg/dL (8.5-10.1) Total Bilirubin 0.6 mg/dL (0.2-1.0) Aspartate Amino Transf (AST/SGOT) 33 U/L (15-37) Alanine Aminotransferase (ALT/SGPT) 23 U/L (16-63) Alkaline Phosphatase 69 U/L (46-116) Troponin I Quantitative 0.018 ng/mL (0.000-0.055) Total Protein 6.6 g/dL (6.4-8.2) Albumin 3.2 g/dL (3.4-5.0) Albumin/Globulin Ratio 0.9 (1.0-1.7) Vitamin B12 Level 705 pg/mL (247-911) 25-Hydroxy Vitamin D Total 25.3 ng/mL (30-100) Thyroid Stimulating Hormone (TSH) 1.264 uIU/mL (0.358-3.74) Urine Collection Type Void Urine Color Terri Urine Clarity Hazy Urine pH 5.5 (<5.0-8.0) Urine Specific [place] 1.020 (1.000-1.030) Urine Protein Negative mg/dL (NEG-TRACE) Urine Glucose (UA) Negative mg/dL (NEG) Urine Ketones (Stick) 40 mg/dL (NEG) Urine Blood Negative (NEG) Urine Nitrite Negative (NEG) Urine Bilirubin Moderate (NEG) Urine Urobilinogen Dipstick 1.0 mg/dL (0.2 mg/dL) Urine Leukocyte Esterase Trace (NEG) Urine RBC 0 /HPF (0-2) Urine WBC 1-4 /HPF (0-4) Urine Bacteria Moderate /HPF (0-FEW) Urine Hyaline Casts Few /HPF Urine Mucus Slight /LPF Phosphorus Level 3.8 mg/dL (2.6-4.7) Magnesium Level 2.1 mg/dL (1.8-2.4) Test 06/30/20 05:00 White Blood Count 7.5 x10^3/uL (4.0-11.0) Red Blood Count 4.12 x10^6/uL (4.30-5.70) Hemoglobin 13.3 g/dL (13.0-17.5) Hematocrit 38.8 % (39.0-53.0) Mean Corpuscular Volume 94 fL (79-100) Mean Corpuscular Hemoglobin 32 pg (25-35) Mean Corpuscular Hemoglobin Concent 34 g/dL (31-37) Red Cell Distribution Width 14.9 % (11.5-14.5) Platelet Count 415 x10^3/uL (140-400) Neutrophils (%) (Auto) 65 % (31-73) Lymphocytes (%) (Auto) 20 % (24-48) Monocytes (%) (Auto) 12 % (0-9) Eosinophils (%) (Auto) 2 % (0-3) Basophils (%) (Auto) 1 % (0-3) Neutrophils # (Auto) 4.8 x10^3/uL (1.8-7.7) Lymphocytes # (Auto) 1.5 x10^3/uL (1.0-4.8) Monocytes # (Auto) 0.9 x10^3/uL (0.0-1.1) Eosinophils # (Auto) 0.2 x10^3/uL (0.0-0.7) Basophils # (Auto) 0.1 x10^3/uL (0.0-0.2) Assessment and Plan Assessmemt and Plan Problems Medical Problems: (1) Altered mental status Status: Acute Comment Review of Relevant I have reviewed the following items jo-ann (where applicable) has been applied. Labs Laboratory Tests Test 06/29/20 11:35 06/29/20 11:43 06/29/20 11:50 06/30/20 04:15 Glucose (Fingerstick) 88 mg/dL (70-99) White Blood Count 9.8 x10^3/uL (4.0-11.0) Red Blood Count 4.22 x10^6/uL (4.30-5.70) Hemoglobin 13.8 g/dL (13.0-17.5) Hematocrit 39.3 % (39.0-53.0) Mean Corpuscular Volume 93 fL (79-100) Mean Corpuscular Hemoglobin 33 pg (25-35) Mean Corpuscular Hemoglobin Concent 35 g/dL (31-37) Red Cell Distribution Width 14.7 % (11.5-14.5) Platelet Count 484 x10^3/uL (140-400) Neutrophils (%) (Auto) 76 % (31-73) Lymphocytes (%) (Auto) 12 % (24-48) Monocytes (%) (Auto) 11 % (0-9) Eosinophils (%) (Auto) 0 % (0-3) Basophils (%) (Auto) 1 % (0-3) Neutrophils # (Auto) 7.5 x10^3/uL (1.8-7.7) Lymphocytes # (Auto) 1.2 x10^3/uL (1.0-4.8) Monocytes # (Auto) 1.1 x10^3/uL (0.0-1.1) Eosinophils # (Auto) 0.0 x10^3/uL (0.0-0.7) Basophils # (Auto) 0.0 x10^3/uL (0.0-0.2) Prothrombin Time 15.7 SEC (11.7-14.0) Prothromb Time International Ratio 1.3 (0.8-1.1) Activated Partial Thromboplast Time 34 SEC (24-38) Sodium Level 140 mmol/L (136-145) 145 mmol/L (136-145) Potassium Level 3.8 mmol/L (3.5-5.1) 3.6 mmol/L (3.5-5.1) Chloride Level 103 mmol/L (98-107) 107 mmol/L (98-107) Carbon Dioxide Level 23 mmol/L (21-32) 25 mmol/L (21-32) Anion Gap 14 (6-14) 13 (6-14) Blood Urea Nitrogen 22 mg/dL (8-26) 17 mg/dL (8-26) Creatinine 1.4 mg/dL (0.7-1.3) 1.1 mg/dL (0.7-1.3) Estimated GFR (Cockcroft-Gault) 47.9 63.3 BUN/Creatinine Ratio 16 (6-20) Glucose Level 89 mg/dL (70-99) 70 mg/dL (70-99) Calcium Level 9.8 mg/dL (8.5-10.1) 9.1 mg/dL (8.5-10.1) Total Bilirubin 0.6 mg/dL (0.2-1.0) Aspartate Amino Transf (AST/SGOT) 33 U/L (15-37) Alanine Aminotransferase (ALT/SGPT) 23 U/L (16-63) Alkaline Phosphatase 69 U/L (46-116) Troponin I Quantitative 0.018 ng/mL (0.000-0.055) Total Protein 6.6 g/dL (6.4-8.2) Albumin 3.2 g/dL (3.4-5.0) Albumin/Globulin Ratio 0.9 (1.0-1.7) Vitamin B12 Level 705 pg/mL (247-911) 25-Hydroxy Vitamin D Total 25.3 ng/mL (30-100) Thyroid Stimulating Hormone (TSH) 1.264 uIU/mL (0.358-3.74) Urine Collection Type Void Urine Color Terri Urine Clarity Hazy Urine pH 5.5 (<5.0-8.0) Urine Specific [place] 1.020 (1.000-1.030) Urine Protein Negative mg/dL (NEG-TRACE) Urine Glucose (UA) Negative mg/dL (NEG) Urine Ketones (Stick) 40 mg/dL (NEG) Urine Blood Negative (NEG) Urine Nitrite Negative (NEG) Urine Bilirubin Moderate (NEG) Urine Urobilinogen Dipstick 1.0 mg/dL (0.2 mg/dL) Urine Leukocyte Esterase Trace (NEG) Urine RBC 0 /HPF (0-2) Urine WBC 1-4 /HPF (0-4) Urine Bacteria Moderate /HPF (0-FEW) Urine Hyaline Casts Few /HPF Urine Mucus Slight /LPF Phosphorus Level 3.8 mg/dL (2.6-4.7) Magnesium Level 2.1 mg/dL (1.8-2.4) Test 06/30/20 05:00 White Blood Count 7.5 x10^3/uL (4.0-11.0) Red Blood Count 4.12 x10^6/uL (4.30-5.70) Hemoglobin 13.3 g/dL (13.0-17.5) Hematocrit 38.8 % (39.0-53.0) Mean Corpuscular Volume 94 fL (79-100) Mean Corpuscular Hemoglobin 32 pg (25-35) Mean Corpuscular Hemoglobin Concent 34 g/dL (31-37) Red Cell Distribution Width 14.9 % (11.5-14.5) Platelet Count 415 x10^3/uL (140-400) Neutrophils (%) (Auto) 65 % (31-73) Lymphocytes (%) (Auto) 20 % (24-48) Monocytes (%) (Auto) 12 % (0-9) Eosinophils (%) (Auto) 2 % (0-3) Basophils (%) (Auto) 1 % (0-3) Neutrophils # (Auto) 4.8 x10^3/uL (1.8-7.7) Lymphocytes # (Auto) 1.5 x10^3/uL (1.0-4.8) Monocytes # (Auto) 0.9 x10^3/uL (0.0-1.1) Eosinophils # (Auto) 0.2 x10^3/uL (0.0-0.7) Basophils # (Auto) 0.1 x10^3/uL (0.0-0.2) Laboratory Tests Test 06/29/20 11:35 06/29/20 11:43 06/29/20 11:50 06/30/20 04:15 Glucose (Fingerstick) 88 mg/dL (70-99) White Blood Count 9.8 x10^3/uL (4.0-11.0) Red Blood Count 4.22 x10^6/uL (4.30-5.70) Hemoglobin 13.8 g/dL (13.0-17.5) Hematocrit 39.3 % (39.0-53.0) Mean Corpuscular Volume 93 fL (79-100) Mean Corpuscular Hemoglobin 33 pg (25-35) Mean Corpuscular Hemoglobin Concent 35 g/dL (31-37) Red Cell Distribution Width 14.7 % (11.5-14.5) Platelet Count 484 x10^3/uL (140-400) Neutrophils (%) (Auto) 76 % (31-73) Lymphocytes (%) (Auto) 12 % (24-48) Monocytes (%) (Auto) 11 % (0-9) Eosinophils (%) (Auto) 0 % (0-3) Basophils (%) (Auto) 1 % (0-3) Neutrophils # (Auto) 7.5 x10^3/uL (1.8-7.7) Lymphocytes # (Auto) 1.2 x10^3/uL (1.0-4.8) Monocytes # (Auto) 1.1 x10^3/uL (0.0-1.1) Eosinophils # (Auto) 0.0 x10^3/uL (0.0-0.7) Basophils # (Auto) 0.0 x10^3/uL (0.0-0.2) Prothrombin Time 15.7 SEC (11.7-14.0) Prothromb Time International Ratio 1.3 (0.8-1.1) Activated Partial Thromboplast Time 34 SEC (24-38) Sodium Level 140 mmol/L (136-145) 145 mmol/L (136-145) Potassium Level 3.8 mmol/L (3.5-5.1) 3.6 mmol/L (3.5-5.1) Chloride Level 103 mmol/L (98-107) 107 mmol/L (98-107) Carbon Dioxide Level 23 mmol/L (21-32) 25 mmol/L (21-32) Anion Gap 14 (6-14) 13 (6-14) Blood Urea Nitrogen 22 mg/dL (8-26) 17 mg/dL (8-26) Creatinine 1.4 mg/dL (0.7-1.3) 1.1 mg/dL (0.7-1.3) Estimated GFR (Cockcroft-Gault) 47.9 63.3 BUN/Creatinine Ratio 16 (6-20) Glucose Level 89 mg/dL (70-99) 70 mg/dL (70-99) Calcium Level 9.8 mg/dL (8.5-10.1) 9.1 mg/dL (8.5-10.1) Total Bilirubin 0.6 mg/dL (0.2-1.0) Aspartate Amino Transf (AST/SGOT) 33 U/L (15-37) Alanine Aminotransferase (ALT/SGPT) 23 U/L (16-63) Alkaline Phosphatase 69 U/L (46-116) Troponin I Quantitative 0.018 ng/mL (0.000-0.055) Total Protein 6.6 g/dL (6.4-8.2) Albumin 3.2 g/dL (3.4-5.0) Albumin/Globulin Ratio 0.9 (1.0-1.7) Vitamin B12 Level 705 pg/mL (247-911) 25-Hydroxy Vitamin D Total 25.3 ng/mL (30-100) Thyroid Stimulating Hormone (TSH) 1.264 uIU/mL (0.358-3.74) Urine Collection Type Void Urine Color Terri Urine Clarity Hazy Urine pH 5.5 (<5.0-8.0) Urine Specific [place] 1.020 (1.000-1.030) Urine Protein Negative mg/dL (NEG-TRACE) Urine Glucose (UA) Negative mg/dL (NEG) Urine Ketones (Stick) 40 mg/dL (NEG) Urine Blood Negative (NEG) Urine Nitrite Negative (NEG) Urine Bilirubin Moderate (NEG) Urine Urobilinogen Dipstick 1.0 mg/dL (0.2 mg/dL) Urine Leukocyte Esterase Trace (NEG) Urine RBC 0 /HPF (0-2) Urine WBC 1-4 /HPF (0-4) Urine Bacteria Moderate /HPF (0-FEW) Urine Hyaline Casts Few /HPF Urine Mucus Slight /LPF Phosphorus Level 3.8 mg/dL (2.6-4.7) Magnesium Level 2.1 mg/dL (1.8-2.4) Test 06/30/20 05:00 White Blood Count 7.5 x10^3/uL (4.0-11.0) Red Blood Count 4.12 x10^6/uL (4.30-5.70) Hemoglobin 13.3 g/dL (13.0-17.5) Hematocrit 38.8 % (39.0-53.0) Mean Corpuscular Volume 94 fL (79-100) Mean Corpuscular Hemoglobin 32 pg (25-35) Mean Corpuscular Hemoglobin Concent 34 g/dL (31-37) Red Cell Distribution Width 14.9 % (11.5-14.5) Platelet Count 415 x10^3/uL (140-400) Neutrophils (%) (Auto) 65 % (31-73) Lymphocytes (%) (Auto) 20 % (24-48) Monocytes (%) (Auto) 12 % (0-9) Eosinophils (%) (Auto) 2 % (0-3) Basophils (%) (Auto) 1 % (0-3) Neutrophils # (Auto) 4.8 x10^3/uL (1.8-7.7) Lymphocytes # (Auto) 1.5 x10^3/uL (1.0-4.8) Monocytes # (Auto) 0.9 x10^3/uL (0.0-1.1) Eosinophils # (Auto) 0.2 x10^3/uL (0.0-0.7) Basophils # (Auto) 0.1 x10^3/uL (0.0-0.2) Microbiology 06/29/20 Urine Culture - Final, Complete Medications Current Medications Iohexol (Omnipaque 350 Mg/ml) 75 ml 1X ONCE IV ; Start 06/29/20 at 11:30; Stop 06/29/20 at 11:32; Status DC Info (CONTRAST GIVEN -- Rx MONITORING) 1 each PRN DAILY PRN MC SEE COMMENTS; Start 06/29/20 at 11:45; Stop 07/01/20 at 11:44 Sodium Chloride 500 ml @ 500 mls/hr 1X ONCE IV Last administered on 06/29/20at 13:03; Start 06/29/20 at 12:30; Stop 06/29/20 at 13:29; Status DC Ceftriaxone Sodium (Rocephin) 1 gm 1X ONCE IVP Last administered on 06/29/20at 13:03; Start 06/29/20 at 13:00; Stop 06/29/20 at 13:01; Status DC Ondansetron HCl (Zofran) 4 mg PRN Q8HRS PRN IV NAUSEA/VOMITING; Start 06/29/20 at 13:00; Stop 06/30/20 at 12:59 Sennosides (Senna) 17.2 mg PRN BID PRN PO CONSTIPATION; Start 06/29/20 at 15:00 Docusate Sodium (Colace) 100 mg PRN DAILY PRN PO HARD STOOLS; Start 06/29/20 at 15:00 Ondansetron HCl (Zofran) 4 mg PRN Q6HRS PRN IVP NAUSEA/VOMITING; Start 06/29/20 at 15:00 Potassium Chloride (Klor-Con) 40 meq 1X PRN PO PER PROTOCOL; Start 06/29/20 at 15:00; Status UNV Magnesium Oxide (Magnesium Oxide) 400 mg BID PO ; Start 06/29/20 at 21:00; Stop 07/01/20 at 09:01; Status UNV Potassium Chloride/Water 100 ml @ 100 mls/hr Q1H IV ; Start 06/29/20 at 15:00; Stop 06/29/20 at 18:59; Status UNV Magnesium Sulfate 50 ml @ 25 mls/hr Q24H IV ; Start 06/29/20 at 15:00; Stop 07/01/20 at 16:59; Status UNV Potassium Chloride/Water 100 ml @ 100 mls/hr Q1H PRN IV low k; Start 06/29/20 at 15:00; Status UNV Aspirin (Ecotrin) 81 mg DAILYWBKFT PO ; Start 06/30/20 at 08:00 Dextrose (Dextrose 50%-Water Syringe) 12.5 gm PRN Q15MIN PRN IV SEE COMMENTS; Start 06/29/20 at 15:00 Sodium Chloride 1,000 ml @ 125 mls/hr Q8H IV Last administered on 06/30/20at 03:21; Start 06/29/20 at 14:53 Acetaminophen (Tylenol) 650 mg PRN Q4HRS PRN PO TEMP OVER 100.4F OR MILD PAIN; Start 06/29/20 at 15:00 Enoxaparin Sodium (Lovenox 40mg Syringe) 40 mg Q24H SQ ; Start 06/29/20 at 16:00 Thiamine HCl 100 mg/Dextrose 51 ml @ 102 mls/hr DAILY IV Last administered on 06/29/20at 18:53; Start 06/29/20 at 16:00 Info (Non-Icu Electrolyte Protocol) 1 ea CONT PRN PRN MC SEE COMMENTS; Start 06/29/20 at 15:30 Active Scripts Active Reported Synthroid (Levothyroxine Sodium) 25 Mcg Tablet 1 Tab PO DAILY Calmoseptine Ointment (Menthol/Zinc Oxide) 71 Gm Oint...g. 71 Gm TP QID Indomethacin 50 Mg Capsule 50 Mg PO PRN Q8HRS Lasix (Furosemide) 40 Mg Tablet 40 Mg PO DAILY Vitals/I & O Vital Sign - Last 24 Hours 06/29/20 06/29/20 06/29/20 06/29/20 11:09 11:30 11:45 12:00 Temp 98.0 98.0 Pulse 83 97 81 76 Resp 20 32 20 B/P (MAP) 148/72 (97) Pulse Ox 99 84 98 O2 Delivery Room Air 06/29/20 06/29/20 06/29/20 06/29/20 12:15 12:30 12:45 13:02 Pulse 82 70 83 72 Resp 30 23 Pulse Ox 94 96 86 06/29/20 06/29/20 06/29/20 06/29/20 13:17 13:32 13:47 14:02 Pulse 67 64 67 66 Pulse Ox 97 99 99 99 06/29/20 06/29/20 06/29/20 06/29/20 14:17 14:32 14:47 15:02 Pulse 63 63 67 Pulse Ox 98 99 100 99 06/29/20 06/29/20 06/29/20 06/29/20 15:17 15:32 15:47 16:02 Pulse 63 61 61 63 Pulse Ox 96 100 100 96 06/29/20 06/29/20 06/29/20 06/29/20 16:17 16:32 17:00 19:00 Temp 98.8 98.8 Pulse 62 64 71 Resp 18 B/P (MAP) 151/66 (94) Pulse Ox 98 98 99 O2 Delivery Room Air Room Air 06/29/20 06/29/20 06/30/20 20:00 23:00 03:00 Temp 98.6 98.6 98.6 98.6 Pulse 67 38 Resp 18 18 B/P (MAP) 137/70 (92) 150/57 (88) Pulse Ox 96 99 O2 Delivery Room Air Room Air Room Air Intake and Output0 06/29/20 06/29/20 06/30/20 15:00 23:00 07:00 Intake Total 500 ml 0 ml 0 ml Output Total 150 ml 200 ml 150 ml Balance 350 ml -200 ml -150 ml Justicifation of Admission Dx: Justifications for Admission: Justification of Admission Dx: Yes (AMS) RADHA MALHOTRA MD Jun 30, 2020 08:36
--- NOTE | 2020-06-30 10:33 | PDOC2 ---
NEUROLOGY CONSULT Date of Service DOS: DATE: 06/30/20 TIME: 10:18 Reason for Consult Reason for Consult: Altered mental status Referring Physician Referring Physician: Dr. Hilton Source Source: Caregiver (Son), Chart review, Patient History of Present Illness History of Present Illness The patient is an 85-year-old right-handed male sent from the [facility] unit where he has resided for the past 2 years. He has a diagnosis of Alzheimer's dementia. He has had several falls and was thought to have decreased level of consciousness and left-sided weakness at 10:30 AM yesterday. He has been eating up until the past few days. He has had several falls over the past few months. He has had bruising on his extremities and I note that he is been on Eliquis regarding deep venous thrombosis. Son knows of no particular history of stroke, seizure, or head injury. Past Medical History Cardiovascular: CHF, HTN, Other (DVT, edema) Pulmonary: Other CENTRAL NERVOUS SYSTEM: Dementia GI: Constipation Psych: Anxiety, Depression ENT: Other ( hearing loss) Renal/: Urinary Incontinence Endocrine: Hypothyroidism Dermatology: Cellulitis Past Surgical History Past Surgical History: No pertinent history Family History Family History: No pertinent hx Social History Social History Rare alcohol, no tobacco, Current Medications Current Medications Current Medications Iohexol (Omnipaque 350 Mg/ml) 75 ml 1X ONCE IV ; Start 06/29/20 at 11:30; Stop 06/29/20 at 11:32; Status DC Info (CONTRAST GIVEN -- Rx MONITORING) 1 each PRN DAILY PRN MC SEE COMMENTS; Start 06/29/20 at 11:45; Stop 07/01/20 at 11:44 Sodium Chloride 500 ml @ 500 mls/hr 1X ONCE IV Last administered on 06/29/20at 13:03; Start 06/29/20 at 12:30; Stop 06/29/20 at 13:29; Status DC Ceftriaxone Sodium (Rocephin) 1 gm 1X ONCE IVP Last administered on 06/29/20at 13:03; Start 06/29/20 at 13:00; Stop 06/29/20 at 13:01; Status DC Ondansetron HCl (Zofran) 4 mg PRN Q8HRS PRN IV NAUSEA/VOMITING; Start 06/29/20 at 13:00; Stop 06/30/20 at 12:59 Sennosides (Senna) 17.2 mg PRN BID PRN PO CONSTIPATION; Start 06/29/20 at 15:00 Docusate Sodium (Colace) 100 mg PRN DAILY PRN PO HARD STOOLS; Start 06/29/20 at 15:00 Ondansetron HCl (Zofran) 4 mg PRN Q6HRS PRN IVP NAUSEA/VOMITING; Start 06/29/20 at 15:00 Potassium Chloride (Klor-Con) 40 meq 1X PRN PO PER PROTOCOL; Start 06/29/20 at 15:00; Status UNV Magnesium Oxide (Magnesium Oxide) 400 mg BID PO ; Start 06/29/20 at 21:00; Stop 07/01/20 at 09:01; Status UNV Potassium Chloride/Water 100 ml @ 100 mls/hr Q1H IV ; Start 06/29/20 at 15:00; Stop 06/29/20 at 18:59; Status UNV Magnesium Sulfate 50 ml @ 25 mls/hr Q24H IV ; Start 06/29/20 at 15:00; Stop 07/01/20 at 16:59; Status UNV Potassium Chloride/Water 100 ml @ 100 mls/hr Q1H PRN IV low k; Start 06/29/20 at 15:00; Status UNV Aspirin (Ecotrin) 81 mg DAILYWBKFT PO ; Start 06/30/20 at 08:00 Dextrose (Dextrose 50%-Water Syringe) 12.5 gm PRN Q15MIN PRN IV SEE COMMENTS; Start 06/29/20 at 15:00 Sodium Chloride 1,000 ml @ 125 mls/hr Q8H IV Last administered on 06/30/20at 03:21; Start 06/29/20 at 14:53 Acetaminophen (Tylenol) 650 mg PRN Q4HRS PRN PO TEMP OVER 100.4F OR MILD PAIN; Start 06/29/20 at 15:00 Enoxaparin Sodium (Lovenox 40mg Syringe) 40 mg Q24H SQ ; Start 06/29/20 at 16:00 Thiamine HCl 100 mg/Dextrose 51 ml @ 102 mls/hr DAILY IV Last administered on 06/29/20at 18:53; Start 06/29/20 at 16:00 Info (Non-Icu Electrolyte Protocol) 1 ea CONT PRN PRN MC SEE COMMENTS; Start 06/29/20 at 15:30 Active Scripts Active Reported Synthroid (Levothyroxine Sodium) 25 Mcg Tablet 1 Tab PO DAILY Calmoseptine Ointment (Menthol/Zinc Oxide) 71 Gm Oint...g. 71 Gm TP QID Indomethacin 50 Mg Capsule 50 Mg PO PRN Q8HRS Lasix (Furosemide) 40 Mg Tablet 40 Mg PO DAILY Allergies Allergies: Coded Allergies: Penicillins (Verified Allergy, Intermediate, 06/30/20) ROS Review of System Negative for fever, chills, weight loss, shortness of breath, chest pain, indigestion, hematochezia, melena, and dysuria. Has been seeing a wound care nurse for cellulitis and she is concerned he has circulation problems. Full 14- point review of systems is negative. Physical Exam Physical Examination General: Well-developed, well-nourished white male in no acute distress HEENT: Normocephalic andatraumatic. Temporal arteriespulsatile and nontender. Neck: Supple without bruit, no meningismus Musculoskeletal: Stability:see neurologic. Gait exam:see neurologic. Tone:see neurologic.Strength:see neurologic. Neurological: Mental Status: orientation, memory, attention span/concentration, language, fund of knowledge: mumbles replies, does not follow commands. Cranial Nerves:Pupils equal and reactive to light, extraocular movements areintact, visual morrow are full to confrontation. Facial sensation is normal. There is no facial asymmetry. Vestibulo-ocular reflex is intact. Palate elevates and tongue protrudes in midline. All other cranial related problems are negative except as mentioned before.Reflexes:1+ and symmetric with flexor plantar responses. Bilateral grasp reflexes. Motor: moves all extremities, gegenhalten tone. Coordination: not cooperative. He does have a very mild resting tremor of the right upper e xtremity. Gait:Not tested. Sensory: withdraws to pinprick in all 4 extremities. Vitals VITALS Vital Signs Date Time Temp Pulse Resp B/P (MAP) Pulse Ox O2 Delivery O2 Flow Rate FiO2 06/30/20 07:30 97.9 76 18 135/72 (93) 94 Room Air 97.9 Labs Labs Laboratory Tests Test 06/29/20 11:35 06/29/20 11:43 06/29/20 11:50 06/30/20 04:15 Glucose (Fingerstick) 88 mg/dL (70-99) White Blood Count 9.8 x10^3/uL (4.0-11.0) Red Blood Count 4.22 x10^6/uL (4.30-5.70) Hemoglobin 13.8 g/dL (13.0-17.5) Hematocrit 39.3 % (39.0-53.0) Mean Corpuscular Volume 93 fL (79-100) Mean Corpuscular Hemoglobin 33 pg (25-35) Mean Corpuscular Hemoglobin Concent 35 g/dL (31-37) Red Cell Distribution Width 14.7 % (11.5-14.5) Platelet Count 484 x10^3/uL (140-400) Neutrophils (%) (Auto) 76 % (31-73) Lymphocytes (%) (Auto) 12 % (24-48) Monocytes (%) (Auto) 11 % (0-9) Eosinophils (%) (Auto) 0 % (0-3) Basophils (%) (Auto) 1 % (0-3) Neutrophils # (Auto) 7.5 x10^3/uL (1.8-7.7) Lymphocytes # (Auto) 1.2 x10^3/uL (1.0-4.8) Monocytes # (Auto) 1.1 x10^3/uL (0.0-1.1) Eosinophils # (Auto) 0.0 x10^3/uL (0.0-0.7) Basophils # (Auto) 0.0 x10^3/uL (0.0-0.2) Prothrombin Time 15.7 SEC (11.7-14.0) Prothromb Time International Ratio 1.3 (0.8-1.1) Activated Partial Thromboplast Time 34 SEC (24-38) Sodium Level 140 mmol/L (136-145) 145 mmol/L (136-145) Potassium Level 3.8 mmol/L (3.5-5.1) 3.6 mmol/L (3.5-5.1) Chloride Level 103 mmol/L (98-107) 107 mmol/L (98-107) Carbon Dioxide Level 23 mmol/L (21-32) 25 mmol/L (21-32) Anion Gap 14 (6-14) 13 (6-14) Blood Urea Nitrogen 22 mg/dL (8-26) 17 mg/dL (8-26) Creatinine 1.4 mg/dL (0.7-1.3) 1.1 mg/dL (0.7-1.3) Estimated GFR (Cockcroft-Gault) 47.9 63.3 BUN/Creatinine Ratio 16 (6-20) Glucose Level 89 mg/dL (70-99) 70 mg/dL (70-99) Calcium Level 9.8 mg/dL (8.5-10.1) 9.1 mg/dL (8.5-10.1) Total Bilirubin 0.6 mg/dL (0.2-1.0) Aspartate Amino Transf (AST/SGOT) 33 U/L (15-37) Alanine Aminotransferase (ALT/SGPT) 23 U/L (16-63) Alkaline Phosphatase 69 U/L (46-116) Troponin I Quantitative 0.018 ng/mL (0.000-0.055) Total Protein 6.6 g/dL (6.4-8.2) Albumin 3.2 g/dL (3.4-5.0) Albumin/Globulin Ratio 0.9 (1.0-1.7) Vitamin B12 Level 705 pg/mL (247-911) 25-Hydroxy Vitamin D Total 25.3 ng/mL (30-100) Thyroid Stimulating Hormone (TSH) 1.264 uIU/mL (0.358-3.74) Urine Collection Type Void Urine Color Terri Urine Clarity Hazy Urine pH 5.5 (<5.0-8.0) Urine Specific [place] 1.020 (1.000-1.030) Urine Protein Negative mg/dL (NEG-TRACE) Urine Glucose (UA) Negative mg/dL (NEG) Urine Ketones (Stick) 40 mg/dL (NEG) Urine Blood Negative (NEG) Urine Nitrite Negative (NEG) Urine Bilirubin Moderate (NEG) Urine Urobilinogen Dipstick 1.0 mg/dL (0.2 mg/dL) Urine Leukocyte Esterase Trace (NEG) Urine RBC 0 /HPF (0-2) Urine WBC 1-4 /HPF (0-4) Urine Bacteria Moderate /HPF (0-FEW) Urine Hyaline Casts Few /HPF Urine Mucus Slight /LPF Phosphorus Level 3.8 mg/dL (2.6-4.7) Magnesium Level 2.1 mg/dL (1.8-2.4) Test 06/30/20 05:00 White Blood Count 7.5 x10^3/uL (4.0-11.0) Red Blood Count 4.12 x10^6/uL (4.30-5.70) Hemoglobin 13.3 g/dL (13.0-17.5) Hematocrit 38.8 % (39.0-53.0) Mean Corpuscular Volume 94 fL (79-100) Mean Corpuscular Hemoglobin 32 pg (25-35) Mean Corpuscular Hemoglobin Concent 34 g/dL (31-37) Red Cell Distribution Width 14.9 % (11.5-14.5) Platelet Count 415 x10^3/uL (140-400) Neutrophils (%) (Auto) 65 % (31-73) Lymphocytes (%) (Auto) 20 % (24-48) Monocytes (%) (Auto) 12 % (0-9) Eosinophils (%) (Auto) 2 % (0-3) Basophils (%) (Auto) 1 % (0-3) Neutrophils # (Auto) 4.8 x10^3/uL (1.8-7.7) Lymphocytes # (Auto) 1.5 x10^3/uL (1.0-4.8) Monocytes # (Auto) 0.9 x10^3/uL (0.0-1.1) Eosinophils # (Auto) 0.2 x10^3/uL (0.0-0.7) Basophils # (Auto) 0.1 x10^3/uL (0.0-0.2) Laboratory Tests Test 06/29/20 11:35 06/29/20 11:43 06/29/20 11:50 06/30/20 04:15 Glucose (Fingerstick) 88 mg/dL (70-99) White Blood Count 9.8 x10^3/uL (4.0-11.0) Red Blood Count 4.22 x10^6/uL (4.30-5.70) Hemoglobin 13.8 g/dL (13.0-17.5) Hematocrit 39.3 % (39.0-53.0) Mean Corpuscular Volume 93 fL (79-100) Mean Corpuscular Hemoglobin 33 pg (25-35) Mean Corpuscular Hemoglobin Concent 35 g/dL (31-37) Red Cell Distribution Width 14.7 % (11.5-14.5) Platelet Count 484 x10^3/uL (140-400) Neutrophils (%) (Auto) 76 % (31-73) Lymphocytes (%) (Auto) 12 % (24-48) Monocytes (%) (Auto) 11 % (0-9) Eosinophils (%) (Auto) 0 % (0-3) Basophils (%) (Auto) 1 % (0-3) Neutrophils # (Auto) 7.5 x10^3/uL (1.8-7.7) Lymphocytes # (Auto) 1.2 x10^3/uL (1.0-4.8) Monocytes # (Auto) 1.1 x10^3/uL (0.0-1.1) Eosinophils # (Auto) 0.0 x10^3/uL (0.0-0.7) Basophils # (Auto) 0.0 x10^3/uL (0.0-0.2) Prothrombin Time 15.7 SEC (11.7-14.0) Prothromb Time International Ratio 1.3 (0.8-1.1) Activated Partial Thromboplast Time 34 SEC (24-38) Sodium Level 140 mmol/L (136-145) 145 mmol/L (136-145) Potassium Level 3.8 mmol/L (3.5-5.1) 3.6 mmol/L (3.5-5.1) Chloride Level 103 mmol/L (98-107) 107 mmol/L (98-107) Carbon Dioxide Level 23 mmol/L (21-32) 25 mmol/L (21-32) Anion Gap 14 (6-14) 13 (6-14) Blood Urea Nitrogen 22 mg/dL (8-26) 17 mg/dL (8-26) Creatinine 1.4 mg/dL (0.7-1.3) 1.1 mg/dL (0.7-1.3) Estimated GFR (Cockcroft-Gault) 47.9 63.3 BUN/Creatinine Ratio 16 (6-20) Glucose Level 89 mg/dL (70-99) 70 mg/dL (70-99) Calcium Level 9.8 mg/dL (8.5-10.1) 9.1 mg/dL (8.5-10.1) Total Bilirubin 0.6 mg/dL (0.2-1.0) Aspartate Amino Transf (AST/SGOT) 33 U/L (15-37) Alanine Aminotransferase (ALT/SGPT) 23 U/L (16-63) Alkaline Phosphatase 69 U/L (46-116) Troponin I Quantitative 0.018 ng/mL (0.000-0.055) Total Protein 6.6 g/dL (6.4-8.2) Albumin 3.2 g/dL (3.4-5.0) Albumin/Globulin Ratio 0.9 (1.0-1.7) Vitamin B12 Level 705 pg/mL (247-911) 25-Hydroxy Vitamin D Total 25.3 ng/mL (30-100) Thyroid Stimulating Hormone (TSH) 1.264 uIU/mL (0.358-3.74) Urine Collection Type Void Urine Color Terri Urine Clarity Hazy Urine pH 5.5 (<5.0-8.0) Urine Specific [place] 1.020 (1.000-1.030) Urine Protein Negative mg/dL (NEG-TRACE) Urine Glucose (UA) Negative mg/dL (NEG) Urine Ketones (Stick) 40 mg/dL (NEG) Urine Blood Negative (NEG) Urine Nitrite Negative (NEG) Urine Bilirubin Moderate (NEG) Urine Urobilinogen Dipstick 1.0 mg/dL (0.2 mg/dL) Urine Leukocyte Esterase Trace (NEG) Urine RBC 0 /HPF (0-2) Urine WBC 1-4 /HPF (0-4) Urine Bacteria Moderate /HPF (0-FEW) Urine Hyaline Casts Few /HPF Urine Mucus Slight /LPF Phosphorus Level 3.8 mg/dL (2.6-4.7) Magnesium Level 2.1 mg/dL (1.8-2.4) Test 06/30/20 05:00 White Blood Count 7.5 x10^3/uL (4.0-11.0) Red Blood Count 4.12 x10^6/uL (4.30-5.70) Hemoglobin 13.3 g/dL (13.0-17.5) Hematocrit 38.8 % (39.0-53.0) Mean Corpuscular Volume 94 fL (79-100) Mean Corpuscular Hemoglobin 32 pg (25-35) Mean Corpuscular Hemoglobin Concent 34 g/dL (31-37) Red Cell Distribution Width 14.9 % (11.5-14.5) Platelet Count 415 x10^3/uL (140-400) Neutrophils (%) (Auto) 65 % (31-73) Lymphocytes (%) (Auto) 20 % (24-48) Monocytes (%) (Auto) 12 % (0-9) Eosinophils (%) (Auto) 2 % (0-3) Basophils (%) (Auto) 1 % (0-3) Neutrophils # (Auto) 4.8 x10^3/uL (1.8-7.7) Lymphocytes # (Auto) 1.5 x10^3/uL (1.0-4.8) Monocytes # (Auto) 0.9 x10^3/uL (0.0-1.1) Eosinophils # (Auto) 0.2 x10^3/uL (0.0-0.7) Basophils # (Auto) 0.1 x10^3/uL (0.0-0.2) Images Images CT Head without IV contrast INDICATION: Reason: LEFT SIDED WEAKNESS / Spl. Instructions: / History: TECHNIQUE: Multi-detector row CT images were obtained of the head without the use of IV contrast. All CT scans performed at this facility utilize dose optimization techniques as appropriate to the exam, including the following: Automated exposure control and adjustment of the mA and/or KV according to patient size (this includes techniques or standardized protocols for targeted exams where dose is indication/reason for exam). COMPARISON: None FINDINGS: BRAIN PARENCHYMA: No evidence of acute intraparenchymal hemorrhage or infarct. Mild generalized parenchymal volume loss is present. VENTRICLES & EXTRA-AXIAL SPACES: Ventricles are within normal limits. Basilar cisterns are patent. No pathologic extra-axial fluid collection or mass. ORBITS: Orbital contents are unremarkable. SINUSES: Visualized paranasal sinuses and mastoid air cells are clear. OSSEOUS & SOFT TISSUES: Calvarium and skull base are intact. IMPRESSION: No acute intracranial pathology. CT angiography head and neck with IV contrast COMPARISON:CT head same day exam History: Left-sided weakness TECHNIQUE: Axial CT angiographic images of the head and neck were performed with IV contrast. Coronal and sagittal 3-D MIP reformats are performed. 3-D Volumetric reformats of the carotids and [place] were performed. Exposure: One or more of the following individualized dose reduction techniques were utilized for this examination: 1. Automated exposure control 2. Adjustment of the mA and/or kV according to patient size 3. Use of iterative reconstruction technique Stenosis calculations for CT, MR, and conventional angiography are based upon measurements of the distal ICA diameter in accordance with the NASCET methodology. Stenosis calculations for carotid ultrasound studies are derived from validated velocity criteria which are known to correlate with the NASCET methodology. FINDINGS: There is a 4 cm hypodense nodule identified in the left lobe of the thyroid gland. The origin of the great vessels from the arch of the aorta appears patent. The visualized common carotid arteries appear patent. Moderate atherosclerotic calcifications identified in the proximal left proximal internal carotid artery. There is mild to moderate atherosclerotic calcification identified in the right proximal internal carotid artery. Moderate metastatic calcifications identified in the bilateral internal carotid arteries in the cavernous portions. The bilateral middle cerebral arteries, anterior cerebral arteries are patent The bilateral vertebral arteries, basilar artery is patent. The bilateral posterior cerebral arteries are patent. Mild emphysematous changes apical lungs. IMPRESSION: 1. No evidence of occlusive thrombus. 2. Moderate atherosclerotic calcifications identified in the left proximal internal carotid artery and mild to moderate atherosclerotic calcification identified in the right proximal internal carotid artery of the neck. Assessment/Plan Assessment/Plan Impression: Possible transient ischemic attack yesterday Advanced Alzheimer's dementia Also showing a little bit of rest tremor, may have some component of parkinsonism Metabolic issues include urinary tract infection, cellulitis, possible peripheral vascular disease. Note normal B12 and TSH Recommendations: I discussed with the patient son, in this situation, a full stroke workup is not indicated, although the patient has already had CT angiogram. He is not a candidate for anticoagulation anymore than he is already taking, given his freq uent falls, and he is not a surgical candidate for carotid endarterectomy, even if the CTA had shown significant disease Treatment of medical problems I suspect he will have neurogenic dysphagia and son will need to make a decision regarding PEG placement. He will discuss these issues with the rest of the family. Patient will need alf placement Also discuss with Dr. Garsia Thank you for letting me help the patients care JEREMI FLOWER MD Jun 30, 2020 10:33
[2020-06-30 11:00] VITALS: BP 114/61
--- NOTE | 2020-06-30 12:10 | NUR ---
PATIENTS' SON AND DAUGHTER AT THE BEDSIDE, PATIENT SEEN BY SPEECH THERAPY AND CARDIAC DIET ORDERED, PATIENT IMPULSIVE AT THIS TIME AND TRYING TO GET OUT RECLINER TO WALK. PATIENT ASSISTED UP TO WALK PER STAFF AND FAMILY, PATIENT WALKED IN THE HALLWAY AND THE REFUSED TO GO BACK TO HIS ROOM, DR. MALHOTRA ON THE UNIT AND INFORMED, ORDER RECEIVED FOR ATIVAN 0.5MG. Q4HRS PRN.
--- NOTE | 2020-06-30 14:42 | NUR ---
Wound/Ostomy Care Wound Type/Assessment: Patient seen per wound care consult. See wound assessment. Patient has laceration to the right middle, skin tear to the right lower leg, and Stage II pressure ulcer to the left buttock. Wounds cleansed, assessed, and measured. Treatment Recommendations/Plan: Recommendations to paint left middle finger with Betadine daily, xeroform gauze and foam dressing to right lower leg, and calazime cream to buttock. A P-500 bed and a wheelchair cushion ordered for this patient. Education provided: Patient confused at this time and family at bedside. Family educated on dressings and P-500 bed. Offloading surface/device: P-500 bed and wheelchair cushion Recommended Referrals/Tests: N/A Discharge Recommendations for dressings: Continue current treatment. Dressings applied and patient repositioned in bed and turned to the right side. Bed alarm set. Family at bedside. Dressing change instructions left in room. Will follow patient regarding wound care.
[2020-06-30 15:00] VITALS: BP 143/70
--- NOTE | 2020-06-30 15:32 | RAD ---
DUPLEX LOWER EXTREMITY BILAT Indication: Reason: concern for PAD; Non Healing Lower Extremity wounds pain. Comparison: None. Procedure: Real-time grayscale, color flow Doppler, and Doppler spectral waveform analysis of the arterial system of the lower extremity is performed. Findings: Right lower extremity: Triphasic waveform within the right common femoral, deep femoral, superficial femoral, popliteal, posterior tibial, peroneal and dorsalis pedis arteries. Right anterior tibial artery not well visualized. Mildly elevated velocity within the posterior tibial artery measures 166 cm/s. Mild atheromatous plaque. Left lower extremity: Triphasic or biphasic waveform within the left common femoral, deep femoral, superficial femoral, popliteal, posterior tibial, and anterior tibial arteries. Left peroneal and dorsalis pedis arteries not well seen. Mild scattered atheromatous plaque. IMPRESSION: 1. Left peroneal and dorsalis pedis artery as well as right anterior tibial artery are not well visualized, may relate to slow flow or occlusion. CT angiogram can further evaluate as clinically warranted. 2. Mildly elevated velocity within the right posterior tibial artery, may indicate 30-49% stenosis. Electronically signed by: Abrahan Mckeon DO (06/30/2020 3:29 PM) [id number]
[2020-06-30] MEDS: ENOXAPARIN 40 MG/0.4 ML SYRINGE. SQ SCH (16:00)
--- NOTE | 2020-06-30 16:15 | NUR ---
SW following. Spoke with RN and reviewed chart. SW consulted for discharge planning. Pt from [facility], , (fax). PT/OT recommendation is for pt to return to [facility] memory care at discharge. Pt on room air and IV Dextrose. Coordinated care with Dr. Mendieta. Spoke with son Marcial ([phone]) who wants pt to return to [facility] memory care when stable. SW requested COVID test as this is needed for pt to return to [facility]. Pt's son agreeable. SW faxed updated clinicals to the [facility]. Clinicals on the chart. SW following.
[2020-06-30] MEDS: ASPIRIN ENTERIC COATED 81 MG TABLET.DR. PO SCH (16:50)
[2020-06-30] MEDS: THIAMINE INJ 100 MG in IV DEXTROSE 5% 50 ML IV SCH (16:52)
[2020-06-30 19:00] VITALS: BP 134/66
[2020-06-30] MEDS ORDERED: ASPI-630 PO (19:42)
[2020-06-30] MEDS ORDERED: FURO40TA4 PO (19:42)
[2020-06-30] MEDS ORDERED: LEVO75TA5 PO (19:42)
[2020-06-30] MEDS ORDERED: DIVA250T PO (19:42)
[2020-06-30] MEDS ORDERED: METO25TA4 PO (19:42)
[2020-06-30] MEDS ORDERED: PANT40TA77 PO (19:48)
[2020-06-30] MEDS ORDERED: SERT100T PO (19:48)
[2020-06-30] MEDS ORDERED: ACET500T68 PO (19:48)
[2020-06-30] MEDS ORDERED: TRAZ-118 PO (19:48)
[2020-06-30] MEDS ORDERED: POTA20TA4 PO (19:48)
[2020-06-30] MEDS ORDERED: APIX2.5T PO (19:52)
[2020-06-30 23:00] VITALS: BP 143/73
[2020-07-01 03:00] VITALS: BP 132/72
[2020-07-01 07:59] VITALS: BP 143/70
[2020-07-01] MEDS: ASPIRIN ENTERIC COATED 81 MG TABLET.DR. PO SCH ×2 (08:00→08:45)
[2020-07-01] MEDS: IV NORMAL SALINE 1000ML BAG 1,000 ML IV SCH ×3 (08:45→22:53)
[2020-07-01] MEDS: THIAMINE 100 MG TABLET. PO SCH ×2 (08:45→08:48)
--- NOTE | 2020-07-01 11:38 | RAD ---
EXAM: Pelvis and left hip, 3 views. HISTORY: Fall. Pain. COMPARISON: None. FINDINGS: Frontal views of the pelvis and frontal and frog-leg views of the left hip are obtained. No fracture is seen. There is degenerative endplate remodeling with osteophytosis at the mid lower lumbar levels. There are pelvic phleboliths. There are distended air-filled loops of bowel within the abdomen. There is moderate colonic stool. There is density overlying the left iliac bone which may be due to overlying artifact or a bone infarct or bone island. There are calcifications overlying the left midabdomen. IMPRESSION: No acute osseous finding. Electronically signed by: Telma Bartlett MD (07/01/2020 11:35 AM) [id number]
--- NOTE | 2020-07-01 11:39 | RAD ---
Study: 1. CR FOREARM LEFT 2. CR WRIST 2V LEFT Indication: Recent fall. Pain. Comparison: None. Findings: Forearm: No displaced fracture of the radius or ulna. Maintained elbow alignment. No evidence for a large elbow joint effusion. Vascular calcifications. Possible contusive injury at the dorsum of the proximal forearm though this would be better assessed clinically. Wrist: No acute fracture. Carpal alignment is maintained. No advanced arthrosis. Vascular calcifications. Impression: No acute fracture is identified involving the left forearm or wrist. Electronically signed by: TRISH BENAVIDES MD (07/01/2020 11:36 AM) [id number]
[2020-07-01 11:59] VITALS: BP 126/62
--- NOTE | 2020-07-01 12:15 | PDOC ---
[employer] PROGRESS NOTE Date of Service DOS: DATE: 07/01/20 TIME: 12:11 Chief Complaint Chief Complaint IMPRESSION Acute TIA vs ischemic stroke Acute metabolic encephalopathy NOS ROME due to vasomotor nephropathy BLE nonhealing ulcers concerning for PAD Progressive severe dementia Vitamin D deficiency Multiple mild ecchymotic skin changes PLAN Hip and left hand x-ray Start vitamin D replacement - Admit to medicine unit for further workup - Neuro evaluation - pending MRI brain - continue telemonitoring for at least 24 hours - continue maintenance IVF while NPO - maintain normoglycemia with goals of 140-180. Elevated glucose may augment brain injury due to tissue acidosis from anaerobic metabolism, free radical gene ration, and increased blood brain barrier permeability - allow for permissive hypertension with goals between 140-180/90-105 for at least 24 hours - continue ASA Daily within 24 - 48 hours - continue high-intensity statin - pending BLE DVT US - SCD for DVT prophylaxis - pending PT/OT/speech - wound care consult - continue Eliquis for DVT prophylaxis - DNR - MPOA is the son CONSERVATIVE medical management d/w dr Sparks no mri Justifications for Admission Justifications for Admission Other Justification History of Present Illness History of Present Illness HPI: Patient is an 85 yo M with PMHx for Advanced Alzheimers Dementia, HTN, Hypoth yroidism, who is sent from [facility] due to left sided weakness and AMS since 1030am. Patient is non-verbal due to hos progressively worsening dementia and most of the history was obtained from the daughter and son. According to them, the patient has been falling more often in the past couple of months and he usually ambulates with a walker. The son was called this morning by the [place] that the patient was having weakness and decision was made to send him to [facility]. Son also states they have noticed more bruising on his extremities and also there are also some non-healing lower extremity wounds that they think may be due to PAD. Patient has also been on a small dose of Eliquis at 2.5mg for a DVT he had a few years ago. They are unsure whether this was provoked or unprovoked. 07/01/2020 No acute events overnight. Patient seen and examined bedside with daughter Ofe. Daughter states that patient is not close to baseline and continues to be nonverbal. However, she states that early yesterday afternoon patient voiced that he had hip pain. There is also an old appearing wound that appears to be lacerated on the third finger. I will order a hip x-ray and a hand x-ray to further evaluate for potential injuries. Patient's chart, labs, images were reviewed and discussed with RN Past Medical/Surgical History: PMH/PSH: Past Medical History: Hx of LE DVT, Anxiety, Dementia, Hypertension, Hypothyroid, ALZHEIMER'S, GEN. EDEMA, MDD Past Surgical History: Other Additional Past Surgical Histo: UNKNOWN - POOR HISTORIAN Allergies: Allergies: Coded Allergies: Penicillins (Verified Allergy, Unknown, 05/28/18) Family History: Family History: Reviewed and none reported Social History: Social History: Smoking Status: Former Smoker Alcohol Use: Occasionally Drug Use: None Current Medications: Current Medications Vitals/I&O Vitals/I&O: Vital Signs Date Time Temp Pulse Resp B/P (MAP) Pulse Ox O2 Delivery O2 Flow Rate FiO2 07/01/20 07:59 97.9 56 18 143/70 (94) 98 Room Air 97.9 I & O 06/30/20 06/30/20 07/01/20 15:00 23:00 07:00 Intake Total 1000 ml 160 ml Balance 1000 ml 160 ml Physical Exam Physical Exam: GEN: No apparent distress. Alert and awake. Nonverbal. Not following commands HEENT: Normal cephalic, atraumatic, external auditory canals are patent NECK: Supple, no JVD, no thyromegaly was noted LUNGS: Bilateral crackles HEART: RRR, S1, S2 present. Peripheral pulses intact, no obvious murmurs noted ABDOMEN: Soft, nontender. Positive bowel sounds, no organomegaly, normal bowel sounds EXTREMITIES: Without clubbing, cyanosis, or edema. Pedal pulses intact. Negative Homans sign. Left third finger old wound. MUSCULOSKELETAL: Hip is stable. Patient is moving all extremities spontaneously. General: Cooperative, No acute distress Lungs: Clear Abdomen: Normal bowel sounds, Soft Extremities: No cyanosis Assessment and Plan Assessmemt and Plan Problems Medical Problems: (1) Altered mental status Status: Acute Comment Review of Relevant I have reviewed the following items jo-ann (where applicable) has been applied. Medications: Current Medications Medications (Trade) Dose Ordered Sig/Kevin Route PRN Reason Start Time Stop Time Status Last Admin Dose Admin Lorazepam (Ativan Inj) 0.5 mg PRN Q4HRS PRN IVP ANXIETY / AGITATION 06/30/20 12:30 07/01/20 06:32 Justifications for Admission TIA Indications Persistent neurologic signs?: Yes Justification for admission: There is persistence of patient's focal neurologic signs or symptoms or there is concern for recurrence of patient's neurological signs and symptoms. Other Justification POOJA RED MD Jul 01, 2020 12:15
--- NOTE | 2020-07-01 13:51 | PDOC ---
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 Note normal B12 and TSH He passed his swallow evaluation and is eating Plan Treatment of medical problems Patient will need nursing home placement I discussed with the patient daughter Subjective None. Daughter thinks he is better Objective Vital Signs Date Time Temp Pulse Resp B/P (MAP) Pulse Ox O2 Delivery O2 Flow Rate FiO2 07/01/20 11:59 98.1 56 20 126/62 (83) 98 Room Air 98.1 Intake and Output 07/01/20 07:00 Intake Total 1160 ml Balance 1160 ml Intake Oral 160 ml IV Total 1000 ml # Voids 4 # Bowel Movements 2 PHYSICAL EXAM Alert. Follows a few commands, still nonverbal PERRL. EOMI. CN: no focal findings. Muscle tone: [place]. Muscle strength: 3/5 DTR: 1+. Bilateral grasp reflexes Plantar reflex: Flexor Gait: not examined in bed. Sensory exam: no abnormal findings. No cerebellar signs elicited. No rest tremor today Review of Relevant I have reviewed the following items jo-ann (where applicable) has been applied. Labs Laboratory Tests Test 06/30/20 04:15 06/30/20 05:00 Sodium Level 145 mmol/L (136-145) Potassium Level 3.6 mmol/L (3.5-5.1) Chloride Level 107 mmol/L (98-107) Carbon Dioxide Level 25 mmol/L (21-32) Anion Gap 13 (6-14) Blood Urea Nitrogen 17 mg/dL (8-26) Creatinine 1.1 mg/dL (0.7-1.3) Estimated GFR (Cockcroft-Gault) 63.3 Glucose Level 70 mg/dL (70-99) Calcium Level 9.1 mg/dL (8.5-10.1) Phosphorus Level 3.8 mg/dL (2.6-4.7) Magnesium Level 2.1 mg/dL (1.8-2.4) White Blood Count 7.5 x10^3/uL (4.0-11.0) Red Blood Count 4.12 x10^6/uL (4.30-5.70) Hemoglobin 13.3 g/dL (13.0-17.5) Hematocrit 38.8 % (39.0-53.0) Mean Corpuscular Volume 94 fL (79-100) Mean Corpuscular Hemoglobin 32 pg (25-35) Mean Corpuscular Hemoglobin Concent 34 g/dL (31-37) Red Cell Distribution Width 14.9 % (11.5-14.5) Platelet Count 415 x10^3/uL (140-400) Neutrophils (%) (Auto) 65 % (31-73) Lymphocytes (%) (Auto) 20 % (24-48) Monocytes (%) (Auto) 12 % (0-9) Eosinophils (%) (Auto) 2 % (0-3) Basophils (%) (Auto) 1 % (0-3) Neutrophils # (Auto) 4.8 x10^3/uL (1.8-7.7) Lymphocytes # (Auto) 1.5 x10^3/uL (1.0-4.8) Monocytes # (Auto) 0.9 x10^3/uL (0.0-1.1) Eosinophils # (Auto) 0.2 x10^3/uL (0.0-0.7) Basophils # (Auto) 0.1 x10^3/uL (0.0-0.2) Microbiology 06/29/20 Urine Culture - Final, Complete Medications Current Medications Iohexol (Omnipaque 350 Mg/ml) 75 ml 1X ONCE IV ; Start 06/29/20 at 11:30; Stop 06/29/20 at 11:32; Status DC Info (CONTRAST GIVEN -- Rx MONITORING) 1 each PRN DAILY PRN MC SEE COMMENTS; Start 06/29/20 at 11:45; Stop 07/01/20 at 11:44; Status DC Sodium Chloride 500 ml @ 500 mls/hr 1X ONCE IV Last administered on 06/29/20at 13:03; Start 06/29/20 at 12:30; Stop 06/29/20 at 13:29; Status DC Ceftriaxone Sodium (Rocephin) 1 gm 1X ONCE IVP Last administered on 06/29/20at 13:03; Start 06/29/20 at 13:00; Stop 06/29/20 at 13:01; Status DC Ondansetron HCl (Zofran) 4 mg PRN Q8HRS PRN IV NAUSEA/VOMITING; Start 06/29/20 at 13:00; Stop 06/30/20 at 12:59; Status DC Sennosides (Senna) 17.2 mg PRN BID PRN PO CONSTIPATION; Start 06/29/20 at 15:00 Docusate Sodium (Colace) 100 mg PRN DAILY PRN PO HARD STOOLS; Start 06/29/20 at 15:00 Ondansetron HCl (Zofran) 4 mg PRN Q6HRS PRN IVP NAUSEA/VOMITING; Start 06/29/20 at 15:00 Potassium Chloride (Klor-Con) 40 meq 1X PRN PO PER PROTOCOL; Start 06/29/20 at 15:00; Status UNV Magnesium Oxide (Magnesium Oxide) 400 mg BID PO ; Start 06/29/20 at 21:00; Stop 07/01/20 at 09:01; Status UNV Potassium Chloride/Water 100 ml @ 100 mls/hr Q1H IV ; Start 06/29/20 at 15:00; Stop 06/29/20 at 18:59; Status UNV Magnesium Sulfate 50 ml @ 25 mls/hr Q24H IV ; Start 06/29/20 at 15:00; Stop 07/01/20 at 16:59; Status UNV Potassium Chloride/Water 100 ml @ 100 mls/hr Q1H PRN IV low k; Start 06/29/20 at 15:00; Status UNV Aspirin (Ecotrin) 81 mg DAILYWBKFT PO Last administered on 06/30/20at 16:50; Start 06/30/20 at 08:00 Dextrose (Dextrose 50%-Water Syringe) 12.5 gm PRN Q15MIN PRN IV SEE COMMENTS; Start 06/29/20 at 15:00 Sodium Chloride 1,000 ml @ 125 mls/hr Q8H IV Last administered on 07/01/20at 08:45; Start 06/29/20 at 14:53 Acetaminophen (Tylenol) 650 mg PRN Q4HRS PRN PO TEMP OVER 100.4F OR MILD PAIN Last administered on 06/30/20at 16:50; Start 06/29/20 at 15:00 Enoxaparin Sodium (Lovenox 40mg Syringe) 40 mg Q24H SQ ; Start 06/29/20 at 16:00 Thiamine HCl 100 mg/Dextrose 51 ml @ 102 mls/hr DAILY IV Last administered on 06/30/20at 16:52; Start 06/29/20 at 16:00; Stop 07/01/20 at 00:19; Status DC Info (Non-Icu Electrolyte Protocol) 1 ea CONT PRN PRN MC SEE COMMENTS; Start 06/29/20 at 15:30 Lorazepam (Ativan Inj) 0.5 mg PRN Q4HRS PRN IVP ANXIETY / AGITATION Last administered on 07/01/20at 06:32; Start 06/30/20 at 12:30 Thiamine Mononitrate (Vitamin B-1) 100 mg DAILY PO ; Start 07/01/20 at 09:00 Vitamin D (Vitamin D3) 5,000 unit DAILY PO ; Start 07/02/20 at 09:00 Levothyroxine Sodium (Synthroid) 75 mcg DAILY06 PO ; Start 07/02/20 at 09:00 Metoprolol Tartrate (Lopressor) 25 mg BID PO ; Start 07/01/20 at 13:00 Pantoprazole Sodium (Protonix) 40 mg DAILYAC PO ; Start 07/01/20 at 13:00 Active Scripts Active Reported Eliquis (Apixaban) 2.5 Mg Tablet 2.5 Mg PO BID Zoloft (Sertraline Hcl) 100 Mg Tablet 1 Tab PO DAILY Acetaminophen 500 Mg Tablet 1 Tab PO PRN Q4HRS PRN 15 Days Trazodone Hcl 50 Mg Tablet 50 Mg PO HS Potassium Chloride (Potassium Chloride) 20 Meq Tablet.er 20 Meq PO DAILY Pantoprazole Sodium (Pantoprazole Sodium) 40 Mg Tablet.dr 40 Mg PO DAILYAC Metoprolol Tartrate 25 Mg Tablet 1 Tab PO BID Levothyroxine Sodium 75 Mcg Tablet 75 Tab PO DAILY Furosemide 40 Mg Tablet 1 Tab PO DAILY Depakote Er (Divalproex Sodium) 250 Mg Tab.er.24h 1 Tab PO QHS Aspirin 81 Mg Tab.chew 1 Tab PO DAILY Synthroid (Levothyroxine Sodium) 25 Mcg Tablet 1 Tab PO DAILY Calmoseptine Ointment (Menthol/Zinc Oxide) 71 Gm Oint...g. 71 Gm TP QID Indomethacin 50 Mg Capsule 50 Mg PO PRN Q8HRS Lasix (Furosemide) 40 Mg Tablet 40 Mg PO DAILY Vitals/I & O Vital Sign - Last 24 Hours 06/30/20 06/30/20 06/30/20 06/30/20 15:00 19:00 21:00 23:00 Temp 97.7 97.5 98.0 97.7 97.5 98.0 Pulse 56 47 71 Resp 18 20 B/P (MAP) 143/70 (94) 134/66 (88) 143/73 (96) Pulse Ox 98 97 94 O2 Delivery Room Air Room Air Room Air Room Air 07/01/20 07/01/20 07/01/20 03:00 07:59 11:59 Temp 97.8 97.9 98.1 97.8 97.9 98.1 Pulse 67 56 56 Resp 20 B/P (MAP) 132/72 (92) 143/70 (94) 126/62 (83) Pulse Ox 92 98 98 O2 Delivery Room Air Room Air Room Air Intake and Output 06/30/20 06/30/20 07/01/20 15:00 23:00 07:00 Intake Total 1000 ml 160 ml Balance 1000 ml 160 ml Justicifation of Admission Dx: Justifications for Admission: Justification of Admission Dx: Yes (AMS) JEREMI FLOWER MD Jul 01, 2020 13:51
[2020-07-01] MEDS: METOPROLOL TART IMMED RELEASE 25 MG TABLET. PO SCH ×2 (13:56→20:08)
[2020-07-01] MEDS: PANTOPRAZOLE 40 MG TABLET.DR. PO SCH (13:56)
[2020-07-01 15:59] VITALS: BP_SYST 106; BP_SYST 122; BP_DIAS 58; BP_DIAS 82
[2020-07-01] MEDS: HALOPERIDOL LACTATE 5 MG/ML VIAL. IM PRN ×2 (16:31→17:28)
[2020-07-01] MEDS: ENOXAPARIN 40 MG/0.4 ML SYRINGE. SQ SCH (16:33)
--- NOTE | 2020-07-01 18:43 | NUR ---
pt removed telemetry. very combative. tele not replaced.
[2020-07-01 19:00] VITALS: BP 128/75
[2020-07-01 23:00] VITALS: BP 119/59
[2020-07-02 03:01] VITALS: BP 136/80
[2020-07-02] MEDS: IV NORMAL SALINE 1000ML BAG 1,000 ML IV SCH ×3 (06:53→19:45)
[2020-07-02 07:37] VITALS: BP 133/61
[2020-07-02] MEDS: ASPIRIN ENTERIC COATED 81 MG TABLET.DR. PO SCH (08:24)
[2020-07-02] MEDS: CHOLECALCIFEROL (VITAMIN D3) 5,000 UNIT CAPSULE PO SCH (08:24)
[2020-07-02] MEDS: LEVOTHYROXINE 75 MCG TABLET PO SCH (08:25)
[2020-07-02] MEDS: PANTOPRAZOLE 40 MG TABLET.DR. PO SCH (08:25)
[2020-07-02] MEDS: METOPROLOL TART IMMED RELEASE 25 MG TABLET. PO SCH ×2 (08:25→19:45)
[2020-07-02] MEDS: THIAMINE 100 MG TABLET. PO SCH (08:25)
[2020-07-02 10:23] LABS: BASO # 0.1 x10^3/uL (0.0-0.2); BASO % 1 % (0-3); EOS # 0.2 x10^3/uL (0.0-0.7); EOS % 2 % (0-3); HEMATOCRIT 40.3 % (39.0-53.0); HEMOGLOBIN 13.8 g/dL (13.0-17.5); LYMPH # 1.4 x10^3/uL (1.0-4.8); LYMPH % 15 % (24-48); MEAN CORPUSCULAR HEMOGLOBIN 33 pg (25-35); MEAN CORPUSCULAR HGB CONC 34 g/dL (31-37); MEAN CORPUSCULAR VOLUME 95 fL (79-100); MONO # 1.1 x10^3/uL (0.0-1.1); MONO % 12 % (0-9); NEUT # 6.5 x10^3/uL (1.8-7.7); NEUT % 70 % (31-73); PLATELET COUNT 432 x10^3/uL (140-400); RED BLOOD COUNT 4.25 x10^6/uL (4.30-5.70); RED CELL DISTRIBUTION WIDTH 14.5 % (11.5-14.5); WHITE BLOOD COUNT 9.2 x10^3/uL (4.0-11.0)
[2020-07-02 10:28] LABS: CALCIUM 9.3 mg/dL (8.5-10.1); CREATININE 0.8 mg/dL (0.7-1.3); GFR 91.4; MAGNESIUM 1.9 mg/dL (1.8-2.4); POTASSIUM 3.1 mmol/L (3.5-5.1)
--- NOTE | 2020-07-02 11:04 | RAD ---
STUDY: US VENOUS LOWER EXT BILATERAL INDICATION: History of DVT/pulmonary embolism. TECHNIQUE: Color-flow and pulsed wave duplex ultrasound with compression of venous structures of the bilateral lower extremities. COMPARISON: 06/29/2020. FINDINGS: Duplex ultrasound with compression of the deep venous structures of the bilateral lower extremities from the common femoral vein through the popliteal vein is negative for DVT. The posterior tibial and peroneal veins are segmentally visualized and patent where seen. Normal venous waveforms and augmentation are noted throughout. IMPRESSION: No deep venous thrombosis seen throughout either lower extremity. Electronically signed by: TRISH BENAVIDES MD (07/02/2020 11:00 AM) [id number]
[2020-07-02 11:14] VITALS: BP 153/82
[2020-07-02 11:15] VITALS: BP 99/66
--- NOTE | 2020-07-02 11:45 | PDOC ---
[employer] PROGRESS NOTE Date of Service DOS: DATE: 07/02/20 TIME: 11:39 Chief Complaint Chief Complaint Acute TIA vs ischemic stroke Acute metabolic encephalopathy likely delirium NOS ROME due to vasomotor nephropathy BLE nonhealing ulcers concerning for PAD Progressive severe dementia Vitamin D deficiency Multiple mild ecchymotic skin changes Hypokalemia History of BLE DVT and was on Eliquis, residual DVT ruled out on this admission PLAN IV 40 mEq potassium replacement today Start vitamin D replacement - Admit to medicine unit for further workup - Appreciate neuro recommendations - continue maintenance IVF while NPO - maintain normoglycemia with goals of 140-180. - continue ASA Daily within 24 - 48 hours - continue high-intensity statin - SCD for DVT prophylaxis - pending PT/OT/speech - wound care consult Lovenox for DVT prophylaxis, would consider discontinuing Eliquis upon discharge - DNR - MPOA is the son Disposition: Family will discuss with social work tomorrow for SNF placement Justifications for Admission Justifications for Admission Other Justification History of Present Illness History of Present Illness HPI: Patient is an 85 yo M with PMHx for Advanced Alzheimers Dementia, HTN, Hypothyroidism, who is sent from [facility] due to left sided weakness and AMS since 1030am. Patient is non-verbal due to hos progressively worsening dementia and most of the history was obtained from the daughter and son. According to them, the patient has been falling more often in the past couple of months and he usually ambulates with a walker. The son was called this morning by the [place] that the patient was having weakness and decision was made to send him to [facility]. Son also states they have noticed more bruising on his extremities and also there are also some non-healing lower extremity wounds that they think may be due to PAD. Patient has also been on a small dose of Eliquis at 2.5mg for a DVT he had a few years ago. They are unsure whether this was provoked or unprovoked. 07/01/2020 No acute events overnight. Patient seen and examined bedside with daughter Ofe. Daughter states that patient is not close to baseline and continues to be nonverbal. However, she states that early yesterday afternoon patient voiced that he had hip pain. There is also an old appearing wound that appears to be lacerated on the third finger. I will order a hip x-ray and a hand x-ray to further evaluate for potential injuries. Patient's chart, labs, images were reviewed and discussed with RN 07/02/2020 No acute events overnight. Patient continues to be agitated and climbs out of bed. Patient still needs redirection for feeding. Patient is not following commands. Patient's chart, labs, images were reviewed and discussed with RN Past Medical/Surgical History: PMH/PSH: Past Medical History: Hx of LE DVT, Anxiety, Dementia, Hypertension, Hypothyroid, ALZHEIMER'S, GEN. EDEMA, MDD Past Surgical History: Other Additional Past Surgical Histo: UNKNOWN - POOR HISTORIAN Allergies: Allergies: Coded Allergies: Penicillins (Verified Allergy, Unknown, 05/28/18) Family History: Family History: Reviewed and none reported Social History: Social History: Smoking Status: Former Smoker Alcohol Use: Occasionally Drug Use: None Current Medications: Current Medications Vitals/I&O Vitals/I&O: Vital Signs Date Time Temp Pulse Resp B/P (MAP) Pulse Ox O2 Delivery O2 Flow Rate FiO2 07/02/20 11:15 98.0 74 20 99/66 (77) 98 Room Air 98.0 I & O 07/01/20 07/01/20 07/02/20 15:00 23:00 07:00 Output Total 150 ml 3 ml Balance -150 ml -3 ml Physical Exam Physical Exam: GEN: No apparent distress. Alert and awake. Nonverbal. Not following commands HEENT: Normal cephalic, atraumatic, external auditory canals are patent NECK: Supple, no JVD, no thyromegaly was noted LUNGS: Bilateral crackles HEART: RRR, S1, S2 present. Peripheral pulses intact, no obvious murmurs noted ABDOMEN: Soft, nontender. Positive bowel sounds, no organomegaly, normal bowel sounds EXTREMITIES: Without clubbing, cyanosis, or edema. Pedal pulses intact. Negative Homans sign. Left third finger old wound. MUSCULOSKELETAL: Hip is stable. Patient is moving all extremities spontaneously. General: Cooperative, No acute distress Lungs: Clear Abdomen: Normal bowel sounds, Soft Extremities: No cyanosis Labs Labs: Laboratory Tests Test 07/02/20 09:40 White Blood Count 9.2 x10^3/uL (4.0-11.0) Red Blood Count 4.25 x10^6/uL (4.30-5.70) Hemoglobin 13.8 g/dL (13.0-17.5) Hematocrit 40.3 % (39.0-53.0) Mean Corpuscular Volume 95 fL (79-100) Mean Corpuscular Hemoglobin 33 pg (25-35) Mean Corpuscular Hemoglobin Concent 34 g/dL (31-37) Red Cell Distribution Width 14.5 % (11.5-14.5) Platelet Count 432 x10^3/uL (140-400) Neutrophils (%) (Auto) 70 % (31-73) Lymphocytes (%) (Auto) 15 % (24-48) Monocytes (%) (Auto) 12 % (0-9) Eosinophils (%) (Auto) 2 % (0-3) Basophils (%) (Auto) 1 % (0-3) Neutrophils # (Auto) 6.5 x10^3/uL (1.8-7.7) Lymphocytes # (Auto) 1.4 x10^3/uL (1.0-4.8) Monocytes # (Auto) 1.1 x10^3/uL (0.0-1.1) Eosinophils # (Auto) 0.2 x10^3/uL (0.0-0.7) Basophils # (Auto) 0.1 x10^3/uL (0.0-0.2) Sodium Level 141 mmol/L (136-145) Potassium Level 3.1 mmol/L (3.5-5.1) Chloride Level 103 mmol/L (98-107) Carbon Dioxide Level 26 mmol/L (21-32) Anion Gap 12 (6-14) Blood Urea Nitrogen 6 mg/dL (8-26) Creatinine 0.8 mg/dL (0.7-1.3) Estimated GFR (Cockcroft-Gault) 91.4 Glucose Level 84 mg/dL (70-99) Calcium Level 9.3 mg/dL (8.5-10.1) Magnesium Level 1.9 mg/dL (1.8-2.4) Assessment and Plan Assessmemt and Plan Problems Medical Problems: (1) Altered mental status Status: Acute Comment Review of Relevant I have reviewed the following items jo-ann (where applicable) has been applied. Medications: Current Medications Medications (Trade) Dose Ordered Sig/Kevin Route PRN Reason Start Time Stop Time Status Last Admin Dose Admin Vitamin D (Vitamin D3) 5,000 unit DAILY PO 07/02/20 09:00 07/02/20 08:24 Levothyroxine Sodium (Synthroid) 75 mcg DAILY06 PO 07/02/20 09:00 07/02/20 08:25 Metoprolol Tartrate (Lopressor) 25 mg BID PO 07/01/20 13:00 07/02/20 08:25 Pantoprazole Sodium (Protonix) 40 mg DAILYAC PO 07/01/20 13:00 07/02/20 08:25 Haloperidol Lactate (Haldol Inj) 2 mg PRN Q6HRS PRN IM AGITATION 2ND CHOICE 07/01/20 16:15 07/01/20 17:28 Lorazepam (Ativan Inj) 0.5 mg PRN Q4HRS PRN IM ANXIETY / AGITATION 1ST CHOICE 07/01/20 17:45 07/01/20 17:47 Justifications for Admission TIA Indications Persistent neurologic signs?: Yes Justification for admission: There is persistence of patient's focal neurologic signs or symptoms or there is concern for recurrence of patient's neurological signs and symptoms. Other Justification POOJA RED MD Jul 02, 2020 11:45
[2020-07-02] MEDS ORDERED: POTASSIUM CHLORIDE 20 MEQ TABLET.ER. PO ONE ×2 (15:15→17:00)
[2020-07-02] MEDS: ENOXAPARIN 40 MG/0.4 ML SYRINGE. SQ SCH (15:50)
[2020-07-02] MEDS: POTASSIUM CHLORIDE 10MEQ 100 ML IV SCH ×3 (16:00→19:00)
[2020-07-02] MEDS: HALOPERIDOL LACTATE 5 MG/ML VIAL. IM PRN (18:00)
[2020-07-02 19:00] VITALS: BP 136/70
[2020-07-02 23:00] VITALS: BP 152/77
[2020-07-03 03:01] VITALS: BP 162/72
[2020-07-03] MEDS: IV NORMAL SALINE 1000ML BAG 1,000 ML IV SCH (05:42)
[2020-07-03] MEDS: LEVOTHYROXINE 75 MCG TABLET PO SCH (05:45)
[2020-07-03 07:00] VITALS: BP 128/77
[2020-07-03] MEDS: ASPIRIN ENTERIC COATED 81 MG TABLET.DR. PO SCH (09:23)
[2020-07-03] MEDS: THIAMINE 100 MG TABLET. PO SCH (09:23)
[2020-07-03 09:25] VITALS: BP 128/78
[2020-07-03] MEDS: METOPROLOL TART IMMED RELEASE 25 MG TABLET. PO SCH (09:25)
[2020-07-03] MEDS: PANTOPRAZOLE 40 MG TABLET.DR. PO SCH (09:28)
[2020-07-03] MEDS: CHOLECALCIFEROL (VITAMIN D3) 5,000 UNIT CAPSULE PO SCH (09:28)
--- NOTE | 2020-07-03 10:44 | NUR ---
SW following. Spoke with RN and reviewed chart. Spoke with Dr. Valdez and pt is ready for discharge today back to [facility] with hospice. Spoke with son Marcial ([phone]) who stated no preference in hospice provider. Spoke with the DON at the [facility], , (fax) and they use [facility], , (fax). SW phoned and faxed clinicals as well as discharge orders to both the [facility] and [facility]. Pt's son stated that family lives in [facility] and they are hoping to get pt placed closer. SW called the [facility] with [facility] and spoke with TERESA Eugene. SW informed that they can't admit pt today but will review paperwork (SW faxed) for possible transfer to their facility from the [facility]. Pt's son agreeable to this plan. Son provided with contact information for the [facility]. Patient Choice of Vendor form completed. SW phoned and faxed completed Certification of Medical Necessity form to [employer] and non-emergent stretcher transport arranged for 1500. SW notified DON at [facility] as they don't arrange stretcher transportation for patients. Packet of clinicals ready to be sent with pt. RN to call report. No further SW needs. [facility] ([facility]) [address] [place] [phone] , ext [phone] (fax) Addendum: 07/03/20 at 1531 by KIA MOORE Spoke with pt's son who stated appreciation of assistance in getting pt back to [facility] with hospice and he will follow up with the [facility] with [facility] about a possible transfer. TERESA Eugene from the [facility] confirmed that clinicals were received.
--- NOTE | 2020-07-03 10:46 | PDOC ---
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 Note normal B12 and TSH He passed his swallow evaluation Plan Treatment of medical problems Patient will need chcf placement I discussed with the patient son, if he cannot maintain oral nutrition, he would need supplemental nutrition, family is not interested in that and seem to be leaning more toward hospice comfort care. Subjective None Objective Vital Signs Date Time Temp Pulse Resp B/P (MAP) Pulse Ox O2 Delivery O2 Flow Rate FiO2 07/03/20 09:25 87 128/78 07/03/20 08:00 Room Air 07/03/20 07:00 98.3 22 94 98.3 Intake and Output 07/03/20 07:00 Output Total 0 ml Balance 0 ml Output Urine Total 0 ml # Voids 2 PHYSICAL EXAM Alert. Follows a few commands, still nonverbal PERRL. EOMI. CN: no focal findings. Muscle tone: [place]. Muscle strength: 3/5 DTR: 1+. Bilateral grasp reflexes Plantar reflex: Flexor Gait: not examined in bed. Sensory exam: no abnormal findings. No cerebellar signs elicited. No rest tremor today Review of Relevant I have reviewed the following items jo-ann (where applicable) has been applied. Labs Laboratory Tests Test 07/02/20 09:40 White Blood Count 9.2 x10^3/uL (4.0-11.0) Red Blood Count 4.25 x10^6/uL (4.30-5.70) Hemoglobin 13.8 g/dL (13.0-17.5) Hematocrit 40.3 % (39.0-53.0) Mean Corpuscular Volume 95 fL (79-100) Mean Corpuscular Hemoglobin 33 pg (25-35) Mean Corpuscular Hemoglobin Concent 34 g/dL (31-37) Red Cell Distribution Width 14.5 % (11.5-14.5) Platelet Count 432 x10^3/uL (140-400) Neutrophils (%) (Auto) 70 % (31-73) Lymphocytes (%) (Auto) 15 % (24-48) Monocytes (%) (Auto) 12 % (0-9) Eosinophils (%) (Auto) 2 % (0-3) Basophils (%) (Auto) 1 % (0-3) Neutrophils # (Auto) 6.5 x10^3/uL (1.8-7.7) Lymphocytes # (Auto) 1.4 x10^3/uL (1.0-4.8) Monocytes # (Auto) 1.1 x10^3/uL (0.0-1.1) Eosinophils # (Auto) 0.2 x10^3/uL (0.0-0.7) Basophils # (Auto) 0.1 x10^3/uL (0.0-0.2) Sodium Level 141 mmol/L (136-145) Potassium Level 3.1 mmol/L (3.5-5.1) Chloride Level 103 mmol/L (98-107) Carbon Dioxide Level 26 mmol/L (21-32) Anion Gap 12 (6-14) Blood Urea Nitrogen 6 mg/dL (8-26) Creatinine 0.8 mg/dL (0.7-1.3) Estimated GFR (Cockcroft-Gault) 91.4 Glucose Level 84 mg/dL (70-99) Calcium Level 9.3 mg/dL (8.5-10.1) Magnesium Level 1.9 mg/dL (1.8-2.4) Microbiology 06/29/20 Urine Culture - Final, Complete Medications Current Medications Iohexol (Omnipaque 350 Mg/ml) 75 ml 1X ONCE IV Last administered on 06/29/20at 11:30; Start 06/29/20 at 11:30; Stop 06/29/20 at 11:32; Status DC Info (CONTRAST GIVEN -- Rx MONITORING) 1 each PRN DAILY PRN MC SEE COMMENTS; Start 06/29/20 at 11:45; Stop 07/01/20 at 11:44; Status DC Sodium Chloride 500 ml @ 500 mls/hr 1X ONCE IV Last administered on 06/29/20at 13:03; Start 06/29/20 at 12:30; Stop 06/29/20 at 13:29; Status DC Ceftriaxone Sodium (Rocephin) 1 gm 1X ONCE IVP Last administered on 06/29/20at 13:03; Start 06/29/20 at 13:00; Stop 06/29/20 at 13:01; Status DC Ondansetron HCl (Zofran) 4 mg PRN Q8HRS PRN IV NAUSEA/VOMITING; Start 06/29/20 at 13:00; Stop 06/30/20 at 12:59; Status DC Sennosides (Senna) 17.2 mg PRN BID PRN PO CONSTIPATION; Start 06/29/20 at 15:00 Docusate Sodium (Colace) 100 mg PRN DAILY PRN PO HARD STOOLS; Start 06/29/20 at 15:00 Ondansetron HCl (Zofran) 4 mg PRN Q6HRS PRN IVP NAUSEA/VOMITING; Start 06/29/20 at 15:00 Potassium Chloride (Klor-Con) 40 meq 1X PRN PO PER PROTOCOL; Start 06/29/20 at 15:00; Status UNV Magnesium Oxide (Magnesium Oxide) 400 mg BID PO ; Start 06/29/20 at 21:00; Stop 07/01/20 at 09:01; Status UNV Potassium Chloride/Water 100 ml @ 100 mls/hr Q1H IV ; Start 06/29/20 at 15:00; Stop 06/29/20 at 18:59; Status UNV Magnesium Sulfate 50 ml @ 25 mls/hr Q24H IV ; Start 06/29/20 at 15:00; Stop 07/01/20 at 16:59; Status UNV Potassium Chloride/Water 100 ml @ 100 mls/hr Q1H PRN IV low k; Start 06/29/20 at 15:00; Status UNV Aspirin (Ecotrin) 81 mg DAILYWBKFT PO Last administered on 07/03/20at 09:23; Start 06/30/20 at 08:00 Dextrose (Dextrose 50%-Water Syringe) 12.5 gm PRN Q15MIN PRN IV SEE COMMENTS; Start 06/29/20 at 15:00 Sodium Chloride 1,000 ml @ 125 mls/hr Q8H IV Last administered on 07/01/20at 08:45; Start 06/29/20 at 14:53 Acetaminophen (Tylenol) 650 mg PRN Q4HRS PRN PO TEMP OVER 100.4F OR MILD PAIN Last administered on 06/30/20at 16:50; Start 06/29/20 at 15:00 Enoxaparin Sodium (Lovenox 40mg Syringe) 40 mg Q24H SQ Last administered on 07/02/20at 15:50; Start 06/29/20 at 16:00 Thiamine HCl 100 mg/Dextrose 51 ml @ 102 mls/hr DAILY IV Last administered on 06/30/20at 16:52; Start 06/29/20 at 16:00; Stop 07/01/20 at 00:19; Status DC Info (Non-Icu Electrolyte Protocol) 1 ea CONT PRN PRN MC SEE COMMENTS; Start 06/29/20 at 15:30 Lorazepam (Ativan Inj) 0.5 mg PRN Q4HRS PRN IVP ANXIETY / AGITATION Last administered on 07/01/20at 06:32; Start 06/30/20 at 12:30; Stop 07/01/20 at 17:44; Status DC Thiamine Mononitrate (Vitamin B-1) 100 mg DAILY PO Last administered on 07/03/20at 09:23; Start 07/01/20 at 09:00 Vitamin D (Vitamin D3) 5,000 unit DAILY PO Last administered on 07/03/20at 09:28; Start 07/02/20 at 09:00 Levothyroxine Sodium (Synthroid) 75 mcg DAILY06 PO Last administered on 07/03/20at 05:45; Start 07/02/20 at 09:00 Metoprolol Tartrate (Lopressor) 25 mg BID PO Last administered on 07/03/20at 09:25; Start 07/01/20 at 13:00 Pantoprazole Sodium (Protonix) 40 mg DAILYAC PO Last administered on 07/03/20at 09:28; Start 07/01/20 at 13:00 Haloperidol Lactate (Haldol Inj) 2 mg PRN Q6HRS PRN IM AGITATION 2ND CHOICE Last administered on 07/02/20at 18:00; Start 07/01/20 at 16:15 Lorazepam (Ativan Inj) 0.5 mg PRN Q4HRS PRN IM ANXIETY / AGITATION 1ST CHOICE Last administered on 07/03/20at 03:19; Start 07/01/20 at 17:45 Potassium Chloride/Water 100 ml @ 100 mls/hr Q1H IV ; Start 07/02/20 at 16:00; Stop 07/02/20 at 19:59; Status DC Potassium Chloride (Klor-Con) 40 meq 1X ONCE PO Last administered on 07/02/20at 15:50; Start 07/02/20 at 15:15; Stop 07/02/20 at 15:20; Status DC Potassium Chloride (Klor-Con) 40 meq 1X ONCE PO Last administered on 07/02/20at 17:35; Start 07/02/20 at 17:00; Stop 07/02/20 at 17:01; Status DC Active Scripts Active Reported Eliquis (Apixaban) 2.5 Mg Tablet 2.5 Mg PO BID Zoloft (Sertraline Hcl) 100 Mg Tablet 1 Tab PO DAILY Acetaminophen 500 Mg Tablet 1 Tab PO PRN Q4HRS PRN 15 Days Trazodone Hcl 50 Mg Tablet 50 Mg PO HS Potassium Chloride (Potassium Chloride) 20 Meq Tablet.er 20 Meq PO DAILY Pantoprazole Sodium (Pantoprazole Sodium) 40 Mg Tablet.dr 40 Mg PO DAILYAC Metoprolol Tartrate 25 Mg Tablet 1 Tab PO BID Levothyroxine Sodium 75 Mcg Tablet 75 Tab PO DAILY Furosemide 40 Mg Tablet 1 Tab PO DAILY Depakote Er (Divalproex Sodium) 250 Mg Tab.er.24h 1 Tab PO QHS Aspirin 81 Mg Tab.chew 1 Tab PO DAILY Synthroid (Levothyroxine Sodium) 25 Mcg Tablet 1 Tab PO DAILY Calmoseptine Ointment (Menthol/Zinc Oxide) 71 Gm Oint...g. 71 Gm TP QID Indomethacin 50 Mg Capsule 50 Mg PO PRN Q8HRS Lasix (Furosemide) 40 Mg Tablet 40 Mg PO DAILY Vitals/I & O Vital Sign - Last 24 Hours 07/02/20 07/02/20 07/02/20 07/02/20 11:15 15:00 19:00 19:45 Temp 98.0 98.3 98.0 98.3 Pulse 74 85 85 Resp 20 20 B/P (MAP) 99/66 (77) 136/70 (92) 136/70 Pulse Ox 98 96 O2 Delivery Room Air Room Air Room Air 07/02/20 07/02/20 07/03/20 07/03/20 20:00 23:00 03:01 07:00 Temp 97.9 98.6 98.3 97.9 98.6 98.3 Pulse 68 56 77 Resp 20 20 22 B/P (MAP) 152/77 (102) 162/72 (102) 128/77 (94) Pulse Ox 98 100 94 O2 Delivery Room Air Room Air Room Air Room Air 07/03/20 07/03/20 08:00 09:25 Pulse 87 B/P (MAP) 128/78 O2 Delivery Room Air Intake and Output 07/02/20 07/02/20 07/03/20 15:00 23:00 07:00 Output Total 0 ml Balance 0 ml Justicifation of Admission Dx: Justifications for Admission: Justification of Admission Dx: Yes (AMS) JEREMI FLOWER MD Jul 03, 2020 10:46
--- NOTE | 2020-07-03 11:41 | SNU/HH DC ---
DISCHARGE ORDERS DISCHARGE INFORMATION: FINAL DIAGNOSIS Problems Medical Problems: (1) Altered mental status Status: Acute CONDITION ON DISCHARGE: Stable CODE STATUS: Code Status: DNR/DNI NURSING HOME: SNF STAY <30 DAYS: No HOSPICE: HOSPICE: Yes HOSPICE EVAL & TREAT: Yes LTAC: ADMIT TO LTAC: No POST DISCHARGE ORDERS: ACTIVITY ORDERS: Activity as tolerated WEIGHT BEARING STATUS: As tolerated DIET AFTER DISCHARGE: Cardiac DISCHARGE MEDICATIONS: Home Meds Reported Medications Apixaban (ELIQUIS) 2.5 Mg Tablet, 2.5 MG PO BID for PE, TAB 06/30/20 Sertraline Hcl (ZOLOFT) 100 Mg Tablet, 1 TAB PO DAILY for DEPRESSION, #30 TAB 5 Refills 06/30/20 Acetaminophen (ACETAMINOPHEN) 500 Mg Tablet, 1 TAB PO PRN Q4HRS PRN for pain or fever for 15 Days, #60 TAB 0 Refills 06/30/20 Trazodone Hcl (TRAZODONE HCL) 50 Mg Tablet, 50 MG PO HS for ANXIETY, TAB 06/30/20 Potassium Chloride (POTASSIUM CHLORIDE ) 20 Meq Tablet.er, 20 MEQ PO DAILY for SUPPLEMENT, TAB.SR 06/30/20 Pantoprazole Sodium (PANTOPRAZOLE SODIUM ) 40 Mg Tablet.dr, 40 MG PO DAILYAC for GERD, TAB 06/30/20 Metoprolol Tartrate (METOPROLOL TARTRATE) 25 Mg Tablet, 1 TAB PO BID for HTN, #180 TAB 1 Refill 06/30/20 Levothyroxine Sodium (LEVOTHYROXINE SODIUM) 75 Mcg Tablet, 75 TAB PO DAILY for HYPOTHYROIDISM, #30 TAB 5 Refills 06/30/20 Furosemide (FUROSEMIDE) 40 Mg Tablet, 1 TAB PO DAILY for EDEMA, #30 TAB 5 Refills 06/30/20 Divalproex Sodium (DEPAKOTE ER) 250 Mg Tab.er.24h, 1 TAB PO QHS for ANXIETY, #30 TAB 2 Refills 06/30/20 Aspirin (ASPIRIN) 81 Mg Tab.chew, 1 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
--- NOTE | 2020-07-03 11:46 | PDOC ---
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 Patient is non-verbal due to hos progressively worsening dementia and most of the history was obtained from the daughter and son. According to them, the patient has been falling more often in the past couple of months and he usually ambulates with a walker. The son was called this morning by the [facility] that the patient was having weakness and decision was made to send him to [facility]. Son also states they have noticed more bruising on his extremities and also there are also some non-healing lower extremity wounds that they think may be due to PAD. Patient has also been on a small dose of Eliquis at 2.5mg for a DVT he had a few years ago. They are unsure whether this was provoked or unprovoked. 07/01/2020 No acute events overnight. Patient seen and examined bedside with daughter Ofe. Daughter states that patient is not close to baseline and continues to be nonverbal. However, she states that early yesterday afternoon patient voiced that he had hip pain. There is also an old appearing wound that appears to be lacerated on the third finger. I will order a hip x-ray and a hand x-ray to further evaluate for potential injuries. Patient's chart, labs, images were reviewed and discussed with RN 07/02/2020 No acute events overnight. Patient continues to be agitated and climbs out of bed. Patient still needs redirection for feeding. Patient is not following commands. Patient's chart, labs, images were reviewed and discussed with RN Past Medical/Surgical History: PMH/PSH: Past Medical History: Hx of LE DVT, Anxiety, Dementia, Hypertension, Hypothyroid, ALZHEIMER'S, GEN. EDEMA, MDD Past Surgical History: Other Additional Past Surgical Histo: UNKNOWN - POOR HISTORIAN Allergies: Allergies: Coded Allergies: Penicillins (Verified Allergy, Unknown, 05/28/18) Family History: Family History: Reviewed and none reported Social History: Social History: Smoking Status: Former Smoker Alcohol Use: Occasionally Drug Use: None Current Medications: Current Medications Vitals/I&O Vitals/I&O: Vital Signs Date Time Temp Pulse Resp B/P (MAP) Pulse Ox O2 Delivery O2 Flow Rate FiO2 07/03/20 09:25 87 128/78 07/03/20 08:00 Room Air 07/03/20 07:00 98.3 22 94 98.3 I & O 07/02/20 07/02/20 07/03/20 15:00 23:00 07:00 Output Total 0 ml Balance 0 ml Physical Exam Physical Exam: GEN: No apparent distress. Alert and awake. Nonverbal. Not following commands HEENT: Normal cephalic, atraumatic, external auditory canals are patent NECK: Supple, no JVD, no thyromegaly was noted LUNGS: Bilateral crackles HEART: RRR, S1, S2 present. Peripheral pulses intact, no obvious murmurs noted ABDOMEN: Soft, nontender. Positive bowel sounds, no organomegaly, normal bowel sounds EXTREMITIES: Without clubbing, cyanosis, or edema. Pedal pulses intact. Negative Homans sign. Left third finger old wound. MUSCULOSKELETAL: Hip is stable. Patient is moving all extremities spontaneously. General: Cooperative, No acute distress Lungs: Clear Abdomen: Normal bowel sounds, Soft Extremities: No cyanosis Assessment and Plan Assessmemt and Plan Problems Medical Problems: (1) Altered mental status Status: Acute Discharge with hospice later today Comment Review of Relevant I have reviewed the following items jo-ann (where applicable) has been applied. Medications: Current Medications Medications (Trade) Dose Ordered Sig/Kevin Route PRN Reason Start Time Stop Time Status Last Admin Dose Admin Potassium Chloride (Klor-Con) 40 meq 1X ONCE PO 07/02/20 15:15 07/02/20 15:20 DC 07/02/20 15:50 Potassium Chloride (Klor-Con) 40 meq 1X ONCE PO 07/02/20 17:00 07/02/20 17:01 DC 07/02/20 17:35 Justifications for Admission TIA Indications Persistent neurologic signs?: Yes Justification for admission: There is persistence of patient's focal neurologic signs or symptoms or there is concern for recurrence of patient's neurological signs and symptoms. Other Justification REBEKAH GONZALES III DO Jul 03, 2020 11:45
--- NOTE | 2020-07-03 15:00 | NUR ---
pt discharged home to [facility] via [facility]. pt alert and stable. meds reviewed w/ Kat at [facility]. pt did not have an IV at time of DC
--- NOTE | 2020-07-09 14:19 | DS ---
DATE OF DISCHARGE: 07/03/2020 ADMISSION DIAGNOSIS: Metabolic encephalopathy. DISCHARGE DIAGNOSES: Chronic metabolic encephalopathy with chronic dementia. HOSPITAL COURSE: The patient is a pleasant elderly male who presented with metabolic encephalopathy. He has history of dementia. He is from [facility] Unit. We admitted the patient, did physical therapy, occupational therapy, IV fluids, empiric IV antibiotics. Over the next couple of days, he returned to his baseline and we discharged to [facility] with hospice. DISPOSITION: [facility]. ACTIVITY: As tolerated. DIET: Low sodium. MEDICATIONS: Please see the MRAD. TOTAL TIME: 34 minutes. NIAL Jaimee GONZALES DO DR: RENY/tucker JOB#: [id number] / [id number]
== END 2020-07-03 15:30 | disposition hospice, home (50) | DRG 70 ==
LOC: ER 11:09 → ED HOLD 13:00 → 5 NORTH 14:12 → OBSVTOIN 14:58 → 5 NORTH 17:38
PROVIDERS: ADMIT Internal Medicine; ATTEND Internal Medicine
DX: G93.41 Metabolic encephalopathy (principal); N17.0 Acute kidney failure with tubular necrosis; G45.9 Transient cerebral ischemic attack, unspecified; E87.2 Acidosis; N39.0 Urinary tract infection, site not specified; R47.01 Aphasia; E03.9 Hypothyroidism, unspecified; E55.9 Vitamin D deficiency, unspecified; E87.6 Hypokalemia; F02.80 Dementia in other diseases classified elsewhere, unspecified severity, without behavioral disturbance, psychotic disturbance, mood disturbance, and anxiety; G30.9 Alzheimer's disease, unspecified; G51.0 Bell's palsy; I11.0 Hypertensive heart disease with heart failure; I50.9 Heart failure, unspecified; M19.90 Unspecified osteoarthritis, unspecified site; Z79.82 Long term (current) use of aspirin; Z66 Do not resuscitate; Z86.718 Personal history of other venous thrombosis and embolism; Z87.891 Personal history of nicotine dependence; Z91.81 History of falling; F32.9 Major depressive disorder, single episode, unspecified; F41.9 Anxiety disorder, unspecified; Z88.0 Allergy status to penicillin; Z20.828 Contact with and (suspected) exposure to other viral communicable diseases
CPT/HCPCS: 36415; 70450; 70496; 70498; 71045; 73090; 73100; 73130; 73501; 80048; 80053; 81001; 82306; 82607; 82962; 83735; 84100; 84443; 84484; 85025; 85610; 85730; 87086; 93005; 93925; 93970; 96361; 96374; 99285; G0378; G0379; J0696; J1630; J1650; J2060; J3411; J7030; J7040; J7060; Q9967; 92526-GN; 92610-GN; 97116-GP; 97530-GO; 97530-GP; 97535-GO; U0003-CS